=== PATIENT | male | born 1965 | race Caucasian/White ===

== ENCOUNTER 2016-10-08 10:42 | Emergency (ER) | payer OTHER ==
[~2016-10-08] VITALS: Wt 68.0 kg
[~2016-10-08 10:42] MED LIST: ANTIVERT25 MG PO; CELEXA20 MG PO; CLARITIN10 MG PO; DAYPRO600 M1 PO; FLUOXETINE HCL20 MG PO; HYDROCODONE BIT1 T11 PO; KEFLEX500 MG PO; LIPITOR10 MG PO; LIPITOR20 MG PO; LISINOPRIL/HCTZ1 TAB PO; LISINOPRIL10 MG PO; MEDROL DOSEPAK4 MG PO; NAPROXEN500 M1 PO; NEURONTIN300 MG PO; NKHM; PERCOCET 325 MG1 TA2 PO; PRILOSEC20 MG PO; ROBAXIN750 MG PO; VICODIN 500 MG-1 TAB PO
[2016-10-08] MEDS ORDERED: FLUTICASON0.05 MG/AC NAS (10:53)
[2016-10-08] MEDS ORDERED: SYMBICORT1 AE1 INH (10:53)
[2016-10-08] MEDS ORDERED: PROAIR RESPICL90 MCG INH (10:54)
[2016-10-08] MEDS ORDERED: PERCOCET 325 MG1 TA2 PO (13:42)
== END 2016-10-08 13:51 | disposition home or self-care (01) ==
LOC: ED 10:42
DX: S22.41XA Multiple fractures of ribs, right side, initial encounter for closed fracture (principal); I10 Essential (primary) hypertension; M54.6 Pain in thoracic spine; F17.200 Nicotine dependence, unspecified, uncomplicated; Z90.89 Acquired absence of other organs; Z79.899 Other long term (current) drug therapy; Z88.5 Allergy status to narcotic agent; Z88.8 Allergy status to other drugs, medicaments and biological substances; Y04.0XXA Assault by unarmed brawl or fight, initial encounter; Y93.89 Activity, other specified; Y92.89 Other specified places as the place of occurrence of the external cause; Y99.9 Unspecified external cause status

== ENCOUNTER 2016-10-10 16:57 | Emergency (ER) | payer OTHER ==
[~2016-10-10] VITALS: Ht 175.2 cm; Wt 65.3 kg
[~2016-10-10 16:57] MED LIST changes: +FLUTICASON0.05 MG/AC NAS; +PROAIR RESPICL90 MCG INH; +SYMBICORT1 AE1 INH
[2016-10-10 17:32] LABS: BASO # 0.1 10*3/uL (0.0-0.1); BASO % 0.5 % (0.0-1.0); EOS # 0.4 10*3/uL (0.0-0.4); EOS % 2.6 % (1.0-4.0); HEMATOCRIT 44.7 % (42.0-52.0); HEMOGLOBIN 15.7 g/dl (14.0-18.0); IG # 0.1 10*3/uL (0.0-0.1); LYMPH % 26.3 % (27.0-41.0); MEAN CELL VOLUME 96.3 fl (80.0-94.0); MEAN CORPUSCULAR HGB 33.8 pg (27.0-31.0); MEAN CORPUSCULAR HGB CONC 35.1 g/dl (33.0-37.0); MEAN PLATELET VOLUME 8.9 fl (9.6-12.3); MONO # 1.3 10*3/uL (0.1-1.0); MONO % 8.7 % (3.0-9.0); NEUT # 9.4 10*3/uL (2.3-7.9); NEUT % 61.6 % (47.0-73.0); PLATELET COUNT AUTOMATED 262 10*3/uL (130-400); RED BLOOD COUNT 4.64 10*6/uL (4.50-5.90); RED CELL DISTRI WIDTH 13.9 % (0-14.5); WHITE BLOOD COUNT 15.2 10*3/uL (4.8-10.8)
[2016-10-10 17:41] LABS: INTERNATIONAL NORM RATIO 0.9 (2.0-3.5); PROTHROMBIN TIME 9.4 SECONDS (9.0-12.4)
[2016-10-10 17:47] LABS: ALBUMIN 3.9 gm/dl (3.1-4.5); ALKALINE PHOSPHATASE 129 U/L (45-117); BILIRUBIN, TOTAL 0.5 mg/dl (0.2-1.0); BUN 5 mg/dl (7-24); CARBON DIOXIDE 22 mmol/L (21-32); CHLORIDE 101 mmol/L (98-107); CKMB 0.7 ng/ml (0.5-3.6); CPK 157 U/L (39-308); EST GLOM FILT AFRICAN AMERICAN > 60 ml/min; GLUCOSE 97 mg/dL (65-99); MAGNESIUM 1.8 mg/dL (1.5-2.1); SGOT/AST 29 IU/L (3-35); SGPT/ALT 24 U/L (12-78); SODIUM 137 mmol/L (136-145); TOTAL PROTEIN 8.5 gm/dL (6.4-8.2)
[2016-10-10 17:48] LABS: TROPONIN I < 0.015 ng/ml (<0.045)
[2016-10-10] MEDS ORDERED: PERCOCET 325 MG1 TA2 PO (18:54)
[2016-10-10 19:29] LABS: LA>2 REFLEX 2 HR DRAW NOW
== END 2016-10-10 19:10 | disposition home or self-care (01) ==
LOC: ED 16:57
PROVIDERS: Emergency Medicine
DX: S22.41XD Multiple fractures of ribs, right side, subsequent encounter for fracture with routine healing (principal); F17.200 Nicotine dependence, unspecified, uncomplicated; Z88.6 Allergy status to analgesic agent; Z79.899 Other long term (current) drug therapy; Y04.8XXD Assault by other bodily force, subsequent encounter

== ENCOUNTER 2017-09-09 13:55 | Emergency (ER) | payer OTHER ==
[~2017-09-09] VITALS: Ht 175.2 cm; Wt 65.8 kg
[2017-09-09] MEDS ORDERED: NAPROSYN500 MG PO (14:03)
[2017-09-09] MEDS ORDERED: CHLORZOXAZONE500 M2 PO (14:03)
== END 2017-09-09 15:32 | disposition home or self-care (01) ==
LOC: ED 13:55
DX: M54.42 Lumbago with sciatica, left side (principal); F17.200 Nicotine dependence, unspecified, uncomplicated; Z88.6 Allergy status to analgesic agent; Z79.899 Other long term (current) drug therapy

== ENCOUNTER 2017-09-13 13:09 | Emergency (ER) | payer OTHER ==
[~2017-09-13] VITALS: Ht 175.2 cm; Wt 67.1 kg
[~2017-09-13 13:09] MED LIST changes: +CHLORZOXAZONE500 M2 PO; +NAPROSYN500 MG PO
[2017-09-13] MEDS ORDERED: NORCO 10-325 T1 EACH PO (15:36)
[2017-09-13] MEDS ORDERED: MEDROL DOSEPAK4 MG PO (15:36)
== END 2017-09-13 15:42 | disposition home or self-care (01) ==
LOC: ED 13:09
DX: S39.012A Strain of muscle, fascia and tendon of lower back, initial encounter (principal); Z90.89 Acquired absence of other organs; Z79.899 Other long term (current) drug therapy; Z88.5 Allergy status to narcotic agent; Z88.4 Allergy status to anesthetic agent; X50.1XXA Overexertion from prolonged static or awkward postures, initial encounter; Y93.89 Activity, other specified; Y92.89 Other specified places as the place of occurrence of the external cause; Y99.9 Unspecified external cause status

== ENCOUNTER 2017-12-05 15:58 | Inpatient (IN) | payer OTHER ==
[~2017-12-05] VITALS: Ht 175.3 cm; Wt 65.3 kg
[~2017-12-05 15:58] MED LIST changes: +NORCO 10-325 T1 EACH PO
[2017-12-05 15:59] VITALS: BP 137/83
[2017-12-05 16:45] LABS: BASO # 0.1 10*3/uL (0.0-0.1); BASO % 0.7 % (0.0-1.0); EOS # 0.1 10*3/uL (0.0-0.4); EOS % 0.9 % (1.0-4.0); HEMATOCRIT 49.6 % (42.0-52.0); LYMPH # 2.3 10*3/uL (1.3-4.4); MEAN CORPUSCULAR HGB 34.6 pg (27.0-31.0); MEAN CORPUSCULAR HGB CONC 34.3 g/dl (33.0-37.0); MEAN PLATELET VOLUME 9.4 fl (9.6-12.3); MONO # 1.3 10*3/uL (0.1-1.0); MONO % 8.9 % (3.0-9.0); NEUT # 10.4 10*3/uL (2.3-7.9); NEUT % 73.1 % (47.0-73.0); PLATELET COUNT AUTOMATED 250 10*3/uL (130-400); RED BLOOD COUNT 4.91 10*6/uL (4.50-5.90); RED CELL DISTRI WIDTH 14.1 % (0-14.5); WHITE BLOOD COUNT 14.2 10*3/uL (4.8-10.8)
[2017-12-05 17:03] LABS: ALBUMIN 4.5 gm/dl (3.1-4.5); ALKALINE PHOSPHATASE 112 U/L (45-117); BUN 13 mg/dl (7-24); CHLORIDE 105 mmol/L (98-107); CREATININE 0.88 mg/dL (0.70-1.30); LIPASE 90 U/L (73-393); SGOT/AST 53 IU/L (3-35); SGPT/ALT 39 U/L (12-78); SODIUM 141 mmol/L (136-145); TOTAL PROTEIN 8.7 gm/dL (6.4-8.2)
[2017-12-05 18:55] VITALS: BP 131/95
[2017-12-05 20:39] VITALS: BP 118/83
[2017-12-05 20:45] VITALS: BP 140/80
[2017-12-06] VITALS: BP 117/71
[2017-12-06] MEDS ORDERED: BREO ELLIPTA 11 EACH INH (01:16)
[2017-12-06 03:49] LABS: BASO # 0.1 10*3/uL (0.0-0.1); BASO % 0.6 % (0.0-1.0); EOS # 0.2 10*3/uL (0.0-0.4); EOS % 1.9 % (1.0-4.0); HEMATOCRIT 45.7 % (42.0-52.0); HEMOGLOBIN 15.8 g/dl (14.0-18.0); LYMPH # 3.3 10*3/uL (1.3-4.4); LYMPH % 26.9 % (27.0-41.0); MEAN CELL VOLUME 101.6 fl (80.0-94.0); MEAN CORPUSCULAR HGB 35.1 pg (27.0-31.0); MEAN CORPUSCULAR HGB CONC 34.6 g/dl (33.0-37.0); MEAN PLATELET VOLUME 9.8 fl (9.6-12.3); MONO # 1.4 10*3/uL (0.1-1.0); NEUT # 7.3 10*3/uL (2.3-7.9); NEUT % 59.3 % (47.0-73.0); PLATELET COUNT AUTOMATED 214 10*3/uL (130-400); RED CELL DISTRI WIDTH 14.2 % (0-14.5); WHITE BLOOD COUNT 12.3 10*3/uL (4.8-10.8)
[2017-12-06 04:04] LABS: ACT PARTIAL THROMBO TIME 24.1 SECONDS (20.8-31.5); INTERNATIONAL NORM RATIO 0.9 (2.0-3.5)
[2017-12-06 04:05] LABS: ALBUMIN 3.6 gm/dl (3.1-4.5); ALKALINE PHOSPHATASE 94 U/L (45-117); BUN 16 mg/dl (7-24); CHLORIDE 105 mmol/L (98-107); CHOLESTEROL 241 mg/dL (<200); CREATININE 0.91 mg/dL (0.70-1.30); HDL CHOLESTEROL 49 mg/dl (40-60); LDL CHOLESTEROL 154 mg/dL (9-159); PHOSPHOROUS 3.5 mg/dL (2.5-4.9); POTASSIUM 3.7 mmol/L (3.5-5.1); SGOT/AST 49 IU/L (3-35); SGPT/ALT 32 U/L (12-78); SODIUM 140 mmol/L (136-145); TOTAL PROTEIN 7.7 gm/dL (6.4-8.2); TRIGLYCERIDES 190 mg/dl (<150); VLDL CHOLESTEROL 38 mg/dL (6-40)
[2017-12-06 04:06] LABS: FREE T4 0.89 ng/dl (0.76-1.46)
[2017-12-06 07:28] LABS: VITAMIN D, 25-HYDROXY 17.9 ng/mL (30-100)
[2017-12-06 08:00] VITALS: BP 122/76
== END 2017-12-06 10:44 | disposition left against medical advice (07) | DRG 872 ==
LOC: ED 15:58 → EDHOLD 19:50 → 4E 19:50
PROVIDERS: Family Medicine; Physician Assistant
DX: A41.9 Sepsis, unspecified organism (principal); T18.108A Unspecified foreign body in esophagus causing other injury, initial encounter; D72.810 Lymphocytopenia; F17.210 Nicotine dependence, cigarettes, uncomplicated; J32.0 Chronic maxillary sinusitis; R74.0 Nonspecific elevation of levels of transaminase and lactic acid dehydrogenase [LDH]; M54.32 Sciatica, left side; R00.0 Tachycardia, unspecified; Z53.21 Procedure and treatment not carried out due to patient leaving prior to being seen by health care provider; X58.XXXA Exposure to other specified factors, initial encounter; Z71.6 Tobacco abuse counseling; Z88.8 Allergy status to other drugs, medicaments and biological substances; Z87.19 Personal history of other diseases of the digestive system; Z88.5 Allergy status to narcotic agent; Z79.899 Other long term (current) drug therapy; Z98.52 Vasectomy status; Z80.9 Family history of malignant neoplasm, unspecified; Z83.3 Family history of diabetes mellitus; Z83.6 Family history of other diseases of the respiratory system; Y93.89 Activity, other specified; Y92.89 Other specified places as the place of occurrence of the external cause; Y99.8 Other external cause status

== ENCOUNTER → 2020-02-25 | Outpatient (CLI) | payer OTHER ==
[~2020-02-25] MED LIST changes: +BREO ELLIPTA 11 EACH INH
[2020-02-26 07:06] LABS: HEP B CORE AB, IGM Negative (Negative); HEPATITIS B SURFACE AG Negative (Negative); HEPATITIS C VIRUS ANTIBODY <0.1 s/co (0.0-0.9)
== END | disposition home or self-care (01) ==
LOC: LAB 08:26 → US 08:30
PROVIDERS: Internal Medicine
DX: K76.0 Fatty (change of) liver, not elsewhere classified (principal)

== ENCOUNTER 2020-04-01 06:32 | Emergency (ER) | payer OTHER ==
[~2020-04-01] VITALS: Ht 172.7 cm; Wt 68.0 kg
[2020-04-01 07:58] LABS: BASO # 0.1 10*3/uL (0.0-0.1); BASO % 0.9 % (0.0-1.0); EOS # 0.4 10*3/uL (0.0-0.4); EOS % 3.3 % (1.0-4.0); HEMATOCRIT 41.4 % (42.0-52.0); LYMPH # 3.9 10*3/uL (1.3-4.4); LYMPH % 35.4 % (27.0-41.0); MEAN CORPUSCULAR HGB 34.2 pg (27.0-31.0); MEAN CORPUSCULAR HGB CONC 34.5 g/dl (33.0-37.0); MEAN PLATELET VOLUME 9.7 fl (9.6-12.3); MONO # 1.3 10*3/uL (0.1-1.0); MONO % 12.1 % (3.0-9.0); NEUT # 5.3 10*3/uL (2.3-7.9); PLATELET COUNT AUTOMATED 161 10*3/uL (130-400); RED BLOOD COUNT 4.18 10*6/uL (4.50-5.90); RED CELL DISTRI WIDTH 13.2 % (0-14.5); WHITE BLOOD COUNT 11.1 10*3/uL (4.8-10.8)
[2020-04-01 08:16] LABS: ALBUMIN 3.7 gm/dl (3.1-4.5); ALKALINE PHOSPHATASE 169 U/L (45-117); BUN 7 mg/dl (7-24); CHLORIDE 100 mmol/L (98-107); CPK 156 U/L (39-308); CREATININE 0.74 mg/dL (0.70-1.30); POTASSIUM 3.7 mmol/L (3.5-5.1); SGOT/AST 293 IU/L (3-35); SGPT/ALT 190 U/L (12-78); SODIUM 134 mmol/L (136-145); TOTAL PROTEIN 8.2 gm/dL (6.4-8.2)
[2020-04-01] MEDS ORDERED: VOLTAREN100 GM T (09:40)
== END 2020-04-01 10:05 | disposition home or self-care (01) ==
LOC: ED 06:32
PROVIDERS: Emergency Medicine
DX: K70.9 Alcoholic liver disease, unspecified (principal); M79.604 Pain in right leg; M79.605 Pain in left leg; G89.29 Other chronic pain; F10.129 Alcohol abuse with intoxication, unspecified; I10 Essential (primary) hypertension; J44.9 Chronic obstructive pulmonary disease, unspecified; K21.9 Gastro-esophageal reflux disease without esophagitis; E78.00 Pure hypercholesterolemia, unspecified; F17.200 Nicotine dependence, unspecified, uncomplicated; Z88.8 Allergy status to other drugs, medicaments and biological substances; Z79.899 Other long term (current) drug therapy

== ENCOUNTER → 2020-05-03 | Outpatient (CLI) | payer OTHER ==
[~2020-05-03] MED LIST changes: +VOLTAREN100 GM T
== END | disposition home or self-care (01) ==
LOC: US 12:52
PROVIDERS: ATTEND Internal Medicine
DX: M79.604 Pain in right leg (principal); R09.89 Other specified symptoms and signs involving the circulatory and respiratory systems

== ENCOUNTER 2021-01-16 16:58 | Inpatient (IN) | payer OTHER ==
[~2021-01-16] VITALS: Ht 175.3 cm; Wt 69.9 kg
[2021-01-16 17:41] VITALS: BP 164/88
[2021-01-16 18:27] LABS: BASO # 0.1 10*3/uL (0.0-0.1); BASO % 0.5 % (0.0-1.0); EOS # 0.2 10*3/uL (0.0-0.4); EOS % 1.7 % (1.0-4.0); HEMATOCRIT 44.1 % (42.0-52.0); LYMPH # 1.6 10*3/uL (1.3-4.4); LYMPH % 14.6 % (27.0-41.0); MEAN CORPUSCULAR HGB 33.6 pg (27.0-31.0); MEAN CORPUSCULAR HGB CONC 35.4 g/dl (33.0-37.0); MEAN PLATELET VOLUME 10.6 fl (9.6-12.3); MONO # 1.3 10*3/uL (0.1-1.0); MONO % 12.1 % (3.0-9.0); NEUT # 7.8 10*3/uL (2.3-7.9); NEUT % 70.6 % (47.0-73.0); PLATELET COUNT AUTOMATED 186 10*3/uL (130-400); RED BLOOD COUNT 4.64 10*6/uL (4.50-5.90); RED CELL DISTRI WIDTH 14.3 % (0-14.5)
[2021-01-16 18:47] LABS: ALBUMIN 3.5 gm/dl (3.1-4.5); BUN 6 mg/dl (7-24); CHLORIDE 84 mmol/L (98-107); LIPASE 204 U/L (73-393); POTASSIUM 3.9 mmol/L (3.5-5.1); SODIUM 124 mmol/L (136-145)
[2021-01-16 18:50] LABS: ALKALINE PHOSPHATASE 176 U/L (45-117); CREATININE 0.76 mg/dL (0.70-1.30); SGOT/AST 97 IU/L (3-35); SGPT/ALT 57 U/L (12-78); TOTAL PROTEIN 7.9 gm/dL (6.4-8.2)
[2021-01-16] MEDS ORDERED: OMEPRAZOLE40 MG PO (20:43)
[2021-01-16] MEDS ORDERED: VITAMIN D350 MC2 GT (20:44)
[2021-01-16] MEDS ORDERED: DRIZALMA SPRINK20 MG PO (20:46)
[2021-01-16] MEDS ORDERED: LYRICA150 M1 PO (20:46)
[2021-01-16] MEDS ORDERED: NATURE'S BLEND F1 MG PO (20:46)
[2021-01-16 22:45] VITALS: BP 126/74
[2021-01-17 06:14] LABS: BASO # 0.1 10*3/uL (0.0-0.1); BASO % 0.6 % (0.0-1.0); EOS # 0.1 10*3/uL (0.0-0.4); HEMATOCRIT 38.8 % (42.0-52.0); LYMPH # 1.8 10*3/uL (1.3-4.4); LYMPH % 22.2 % (27.0-41.0); MEAN CELL VOLUME 94.6 fl (80.0-94.0); MEAN CORPUSCULAR HGB 33.4 pg (27.0-31.0); MEAN CORPUSCULAR HGB CONC 35.3 g/dl (33.0-37.0); MEAN PLATELET VOLUME 10.6 fl (9.6-12.3); MONO # 1.2 10*3/uL (0.1-1.0); NEUT # 5.1 10*3/uL (2.3-7.9); NEUT % 61.7 % (47.0-73.0); PLATELET COUNT AUTOMATED 180 10*3/uL (130-400); RED CELL DISTRI WIDTH 14.3 % (0-14.5); WHITE BLOOD COUNT 8.2 10*3/uL (4.8-10.8)
[2021-01-17 06:26] LABS: ALBUMIN 3.1 gm/dl (3.1-4.5); ALKALINE PHOSPHATASE 148 U/L (45-117); BUN 7 mg/dl (7-24); CHLORIDE 92 mmol/L (98-107); CHOLESTEROL 194 mg/dL (<200); CREATININE 0.58 mg/dL (0.70-1.30); POTASSIUM 3.7 mmol/L (3.5-5.1); SGOT/AST 71 IU/L (3-35); SGPT/ALT 50 U/L (12-78); SODIUM 126 mmol/L (136-145); TOTAL PROTEIN 7.1 gm/dL (6.4-8.2); TRIGLYCERIDES 130 mg/dl (<150)
[2021-01-17 06:31] LABS: FREE T4 0.98 ng/dl (0.76-1.46); LDL CHOLESTEROL 120 mg/dL (9-159)
[2021-01-17 07:08] LABS: VITAMIN D, 25-HYDROXY 79.4 ng/mL (30-100)
[2021-01-17 08:00] VITALS: BP 125/72
== END 2021-01-17 09:20 | disposition left against medical advice (07) | DRG 426 ==
LOC: ED 16:58 → EDHOLD 21:05 → 4E 21:05
PROVIDERS: Internal Medicine; Physician Assistant; ADMIT Internal Medicine; ATTEND Internal Medicine
DX: E87.1 Hypo-osmolality and hyponatremia (principal); K59.09 Other constipation; E87.2 Acidosis; B37.0 Candidal stomatitis; K70.9 Alcoholic liver disease, unspecified; G62.9 Polyneuropathy, unspecified; D72.829 Elevated white blood cell count, unspecified; E87.8 Other disorders of electrolyte and fluid balance, not elsewhere classified; R73.9 Hyperglycemia, unspecified; F17.210 Nicotine dependence, cigarettes, uncomplicated; F10.10 Alcohol abuse, uncomplicated; I10 Essential (primary) hypertension; J44.9 Chronic obstructive pulmonary disease, unspecified; Z53.29 Procedure and treatment not carried out because of patient's decision for other reasons; K21.9 Gastro-esophageal reflux disease without esophagitis; R74.01 Elevation of levels of liver transaminase levels; R74.8 Abnormal levels of other serum enzymes; Z71.6 Tobacco abuse counseling; Z80.8 Family history of malignant neoplasm of other organs or systems; Z82.5 Family history of asthma and other chronic lower respiratory diseases; Z81.2 Family history of tobacco abuse and dependence; Z88.5 Allergy status to narcotic agent; Z88.8 Allergy status to other drugs, medicaments and biological substances; Z79.899 Other long term (current) drug therapy; Z83.3 Family history of diabetes mellitus

== ENCOUNTER 2021-01-18 17:00 | Inpatient (IN) | payer OTHER ==
[~2021-01-18] VITALS: Ht 175.2 cm; Wt 72.2 kg
[~2021-01-18 17:00] MED LIST changes: +DRIZALMA SPRINK20 MG PO; +LYRICA150 M1 PO; +NATURE'S BLEND F1 MG PO; +OMEPRAZOLE40 MG PO; +VITAMIN D350 MC2 GT
[2021-01-18 17:15] VITALS: BP 123/78
[2021-01-18 18:54] LABS: BASO # 0.1 10*3/uL (0.0-0.1); BASO % 0.6 % (0.0-1.0); EOS # 0.2 10*3/uL (0.0-0.4); EOS % 1.7 % (1.0-4.0); HEMATOCRIT 39.9 % (42.0-52.0); LYMPH # 1.6 10*3/uL (1.3-4.4); LYMPH % 16.9 % (27.0-41.0); MEAN CELL VOLUME 94.8 fl (80.0-94.0); MEAN CORPUSCULAR HGB CONC 35.8 g/dl (33.0-37.0); MEAN PLATELET VOLUME 10.1 fl (9.6-12.3); MONO # 1.1 10*3/uL (0.1-1.0); MONO % 11.2 % (3.0-9.0); NEUT # 6.7 10*3/uL (2.3-7.9); NEUT % 69.2 % (47.0-73.0); PLATELET COUNT AUTOMATED 191 10*3/uL (130-400); RED BLOOD COUNT 4.21 10*6/uL (4.50-5.90); RED CELL DISTRI WIDTH 14.5 % (0-14.5); WHITE BLOOD COUNT 9.7 10*3/uL (4.8-10.8)
[2021-01-18 19:13] LABS: ALBUMIN 3.3 gm/dl (3.1-4.5); ALKALINE PHOSPHATASE 159 U/L (45-117); BUN 6 mg/dl (7-24); CHLORIDE 88 mmol/L (98-107); CREATININE 0.59 mg/dL (0.70-1.30); LIPASE 276 U/L (73-393); POTASSIUM 3.3 mmol/L (3.5-5.1); SGOT/AST 133 IU/L (3-35); SGPT/ALT 68 U/L (12-78); SODIUM 124 mmol/L (136-145); TOTAL PROTEIN 7.5 gm/dL (6.4-8.2)
[2021-01-18 20:24] LABS: BILIRUBIN 1+ (Negative); BLOOD Negative (Negative); CLARITY Clear (Clear); COLOR Dark Yellow (Yellow); GLUCOSE Negative (Negative); KETONE Trace (Negative); LEUKO ESTERASE Negative (Negative); NITRITE Negative (Negative)
[2021-01-18 20:40] LABS: EPITHELIAL CELLS 16-20
[2021-01-19 01:03] VITALS: BP 117/75
[2021-01-19 01:25] VITALS: BP 138/84
[2021-01-19 06:11] LABS: BASO # 0.1 10*3/uL (0.0-0.1); BASO % 0.5 % (0.0-1.0); EOS # 0.1 10*3/uL (0.0-0.4); EOS % 1.2 % (1.0-4.0); LYMPH # 1.8 10*3/uL (1.3-4.4); LYMPH % 17.6 % (27.0-41.0); MEAN CELL VOLUME 97.1 fl (80.0-94.0); MEAN CORPUSCULAR HGB 33.6 pg (27.0-31.0); MEAN CORPUSCULAR HGB CONC 34.6 g/dl (33.0-37.0); MEAN PLATELET VOLUME 10.5 fl (9.6-12.3); MONO # 1.2 10*3/uL (0.1-1.0); MONO % 11.3 % (3.0-9.0); PLATELET COUNT AUTOMATED 182 10*3/uL (130-400); RED BLOOD COUNT 3.81 10*6/uL (4.50-5.90); RED CELL DISTRI WIDTH 14.5 % (0-14.5); WHITE BLOOD COUNT 10.2 10*3/uL (4.8-10.8)
[2021-01-19 06:23] LABS: ALKALINE PHOSPHATASE 144 U/L (45-117); BUN 7 mg/dl (7-24); CHLORIDE 92 mmol/L (98-107); CREATININE 0.56 mg/dL (0.70-1.30); POTASSIUM 3.8 mmol/L (3.5-5.1); SGOT/AST 97 IU/L (3-35); SGPT/ALT 56 U/L (12-78); SODIUM 126 mmol/L (136-145); TOTAL PROTEIN 6.8 gm/dL (6.4-8.2)
[2021-01-19 06:44] LABS: ACT PARTIAL THROMBO TIME 27.7 SECONDS (20.0-32.1)
[2021-01-19 08:00] VITALS: BP 124/74
[2021-01-19 13:58] LABS: BUN 6 mg/dl (7-24); CHLORIDE 95 mmol/L (98-107); CREATININE 0.52 mg/dL (0.70-1.30); POTASSIUM 3.8 mmol/L (3.5-5.1); SODIUM 128 mmol/L (136-145)
[2021-01-19 16:00] VITALS: BP 121/77
[2021-01-19 20:00] VITALS: BP 117/72
[2021-01-20] VITALS (8 sets, daily range): BP systolic 117–142; BP diastolic 66–88
[2021-01-20 09:03] LABS: BASO # 0.1 10*3/uL (0.0-0.1); BASO % 0.6 % (0.0-1.0); EOS # 0.1 10*3/uL (0.0-0.4); EOS % 1.6 % (1.0-4.0); HEMATOCRIT 36.2 % (42.0-52.0); LYMPH # 2.3 10*3/uL (1.3-4.4); LYMPH % 26.4 % (27.0-41.0); MEAN CELL VOLUME 97.6 fl (80.0-94.0); MEAN CORPUSCULAR HGB 33.4 pg (27.0-31.0); MEAN CORPUSCULAR HGB CONC 34.3 g/dl (33.0-37.0); MEAN PLATELET VOLUME 9.7 fl (9.6-12.3); MONO % 12.1 % (3.0-9.0); NEUT % 58.9 % (47.0-73.0); PLATELET COUNT AUTOMATED 179 10*3/uL (130-400); RED BLOOD COUNT 3.71 10*6/uL (4.50-5.90); RED CELL DISTRI WIDTH 14.4 % (0-14.5); WHITE BLOOD COUNT 8.6 10*3/uL (4.8-10.8)
[2021-01-20 09:21] LABS: ALBUMIN 3.1 gm/dl (3.1-4.5); ALKALINE PHOSPHATASE 141 U/L (45-117); BUN 4 mg/dl (7-24); CHLORIDE 96 mmol/L (98-107); CREATININE 0.58 mg/dL (0.70-1.30); POTASSIUM 3.6 mmol/L (3.5-5.1); SGOT/AST 70 IU/L (3-35); SGPT/ALT 49 U/L (12-78); SODIUM 128 mmol/L (136-145); TOTAL PROTEIN 6.9 gm/dL (6.4-8.2)
[2021-01-20 20:21] LABS: BUN 3 mg/dl (7-24); CHLORIDE 98 mmol/L (98-107); CREATININE 0.58 mg/dL (0.70-1.30); SODIUM 130 mmol/L (136-145)
[2021-01-21 06:26] LABS: BASO # 0.1 10*3/uL (0.0-0.1); BASO % 0.7 % (0.0-1.0); EOS # 0.2 10*3/uL (0.0-0.4); EOS % 2.2 % (1.0-4.0); HEMATOCRIT 35.3 % (42.0-52.0); LYMPH # 2.1 10*3/uL (1.3-4.4); LYMPH % 25.7 % (27.0-41.0); MEAN CELL VOLUME 97.2 fl (80.0-94.0); MEAN CORPUSCULAR HGB 33.3 pg (27.0-31.0); MEAN CORPUSCULAR HGB CONC 34.3 g/dl (33.0-37.0); MONO # 0.9 10*3/uL (0.1-1.0); MONO % 11.2 % (3.0-9.0); NEUT # 4.8 10*3/uL (2.3-7.9); NEUT % 59.6 % (47.0-73.0); PLATELET COUNT AUTOMATED 181 10*3/uL (130-400); RED BLOOD COUNT 3.63 10*6/uL (4.50-5.90); RED CELL DISTRI WIDTH 14.3 % (0-14.5); WHITE BLOOD COUNT 8.1 10*3/uL (4.8-10.8)
[2021-01-21 06:28] LABS: BUN 4 mg/dl (7-24); CHLORIDE 100 mmol/L (98-107); CREATININE 0.51 mg/dL (0.70-1.30); POTASSIUM 3.2 mmol/L (3.5-5.1); SODIUM 133 mmol/L (136-145)
[2021-01-21 08:00] VITALS: BP 132/76
== END 2021-01-21 08:45 | disposition home or self-care (01) | DRG 241 ==
LOC: ED 17:00 → 4E 01-19 00:22 → EDHOLD 01-19 00:22 → 4E 01-19 00:37
PROVIDERS: Hospitalist; Internal Medicine Nephrology; Physician Assistant; ADMIT Internal Medicine; ATTEND Internal Medicine
PROC: 0DB78ZX Excision of Stomach, Pylorus, Via Natural or Artificial Opening Endoscopic, Diagnostic (ICD-10-PCS; principal; 2021-01-20)
PROC: 0DJD8ZZ Inspection of Lower Intestinal Tract, Via Natural or Artificial Opening Endoscopic (ICD-10-PCS; 2021-01-20)
DX: K25.9 Gastric ulcer, unspecified as acute or chronic, without hemorrhage or perforation (principal); E87.2 Acidosis; G62.9 Polyneuropathy, unspecified; E87.1 Hypo-osmolality and hyponatremia; K59.09 Other constipation; E87.6 Hypokalemia; R73.9 Hyperglycemia, unspecified; R74.01 Elevation of levels of liver transaminase levels; E80.6 Other disorders of bilirubin metabolism; D75.89 Other specified diseases of blood and blood-forming organs; F17.210 Nicotine dependence, cigarettes, uncomplicated; F10.20 Alcohol dependence, uncomplicated; K57.90 Diverticulosis of intestine, part unspecified, without perforation or abscess without bleeding; K76.0 Fatty (change of) liver, not elsewhere classified; K70.9 Alcoholic liver disease, unspecified; E87.8 Other disorders of electrolyte and fluid balance, not elsewhere classified; K44.9 Diaphragmatic hernia without obstruction or gangrene; I10 Essential (primary) hypertension; K21.9 Gastro-esophageal reflux disease without esophagitis; Z88.5 Allergy status to narcotic agent; Z88.8 Allergy status to other drugs, medicaments and biological substances; Z82.5 Family history of asthma and other chronic lower respiratory diseases; Z81.2 Family history of tobacco abuse and dependence; Z83.3 Family history of diabetes mellitus; Z80.8 Family history of malignant neoplasm of other organs or systems; Z98.52 Vasectomy status; Z79.899 Other long term (current) drug therapy

== ENCOUNTER 2021-02-07 11:20 | Emergency (ER) | payer OTHER ==
[2021-02-07 13:12] LABS: BASO # 0.1 10*3/uL (0.0-0.1); BASO % 0.6 % (0.0-1.0); EOS # 0.2 10*3/uL (0.0-0.4); EOS % 1.8 % (1.0-4.0); HEMATOCRIT 39.7 % (42.0-52.0); LYMPH # 1.7 10*3/uL (1.3-4.4); LYMPH % 17.7 % (27.0-41.0); MEAN CELL VOLUME 100.5 fl (80.0-94.0); MEAN CORPUSCULAR HGB 33.7 pg (27.0-31.0); MEAN CORPUSCULAR HGB CONC 33.5 g/dl (33.0-37.0); MEAN PLATELET VOLUME 9.4 fl (9.6-12.3); MONO # 0.8 10*3/uL (0.1-1.0); MONO % 8.2 % (3.0-9.0); NEUT # 6.7 10*3/uL (2.3-7.9); NEUT % 71.2 % (47.0-73.0); PLATELET COUNT AUTOMATED 254 10*3/uL (130-400); RED BLOOD COUNT 3.95 10*6/uL (4.50-5.90); WHITE BLOOD COUNT 9.4 10*3/uL (4.8-10.8)
[2021-02-07 13:29] LABS: ALBUMIN 3.1 gm/dl (3.1-4.5); ALKALINE PHOSPHATASE 269 U/L (45-117); BUN 7 mg/dl (7-24); CHLORIDE 96 mmol/L (98-107); CREATININE 0.79 mg/dL (0.70-1.30); LIPASE 182 U/L (73-393); POTASSIUM 4.2 mmol/L (3.5-5.1); SGOT/AST 86 IU/L (3-35); SGPT/ALT 47 U/L (12-78); SODIUM 134 mmol/L (136-145); TOTAL PROTEIN 7.5 gm/dL (6.4-8.2)
[2021-02-07 13:55] LABS: BILIRUBIN Negative (Negative); BLOOD Negative (Negative); CLARITY Clear (Clear); COLOR Yellow (Yellow); GLUCOSE Negative (Negative); KETONE Negative (Negative); PH 8.5 (4.5-8.0); SPECIFIC GRAVITY 1.005 (1.001-1.030)
[2021-02-07 13:56] LABS: LEUKO ESTERASE Negative (Negative); NITRITE Negative (Negative)
[2021-02-07 14:06] LABS: EPITHELIAL CELLS 0-2; RBC 0-2 rbc/hpf (0-2); WBC 0-2 wbc/hpf (0-5)
== END 2021-02-07 16:46 | disposition home or self-care (01) ==
LOC: ED 11:20
PROVIDERS: Physician Assistant
DX: R10.11 Right upper quadrant pain (principal); R20.2 Paresthesia of skin; R11.0 Nausea; F17.200 Nicotine dependence, unspecified, uncomplicated; Z88.8 Allergy status to other drugs, medicaments and biological substances; Z88.5 Allergy status to narcotic agent; Z90.89 Acquired absence of other organs; Z79.899 Other long term (current) drug therapy

== ENCOUNTER 2021-04-13 23:37 | Emergency (ER) | payer OTHER ==
[~2021-04-13] VITALS: Wt 70.3 kg
[2021-04-14] LABS: BASO # 0.1 10*3/uL (0.0-0.1); BASO % 0.5 % (0.0-1.0); EOS # 0.3 10*3/uL (0.0-0.4); EOS % 1.9 % (1.0-4.0); HEMATOCRIT 41.9 % (42.0-52.0); LYMPH % 28.3 % (27.0-41.0); MEAN CELL VOLUME 102.9 fl (80.0-94.0); MEAN CORPUSCULAR HGB 34.6 pg (27.0-31.0); MEAN CORPUSCULAR HGB CONC 33.7 g/dl (33.0-37.0); MEAN PLATELET VOLUME 10.5 fl (9.6-12.3); MONO # 1.5 10*3/uL (0.1-1.0); MONO % 10.7 % (3.0-9.0); NEUT # 8.1 10*3/uL (2.3-7.9); NEUT % 58.2 % (47.0-73.0); PLATELET COUNT AUTOMATED 184 10*3/uL (130-400); RED BLOOD COUNT 4.07 10*6/uL (4.50-5.90); RED CELL DISTRI WIDTH 13.3 % (0-14.5)
[2021-04-14 00:21] LABS: ALBUMIN 2.5 gm/dl (3.1-4.5); ALKALINE PHOSPHATASE 228 U/L (45-117); BUN 9 mg/dl (7-24); CHLORIDE 92 mmol/L (98-107); CREATININE 0.64 mg/dL (0.70-1.30); POTASSIUM 3.3 mmol/L (3.5-5.1); SGOT/AST 75 IU/L (3-35); SGPT/ALT 44 U/L (12-78); SODIUM 129 mmol/L (136-145); TOTAL PROTEIN 6.9 gm/dL (6.4-8.2)
[2021-04-14 03:00] LABS: BILIRUBIN Negative (Negative); BLOOD Negative (Negative); CLARITY Clear (Clear); COLOR Yellow (Yellow); GLUCOSE Negative (Negative); KETONE Negative (Negative); LEUKO ESTERASE Negative (Negative); NITRITE Negative (Negative)
[2021-04-14 03:17] LABS: RBC 0-2 rbc/hpf (0-2); WBC 0-2 wbc/hpf (0-5)
== END 2021-04-14 04:34 | disposition home or self-care (01) ==
LOC: ED 23:37
PROVIDERS: Internal Medicine
DX: R56.9 Unspecified convulsions (principal); E88.09 Other disorders of plasma-protein metabolism, not elsewhere classified; E87.8 Other disorders of electrolyte and fluid balance, not elsewhere classified; R79.89 Other specified abnormal findings of blood chemistry; D72.829 Elevated white blood cell count, unspecified; D75.89 Other specified diseases of blood and blood-forming organs; F10.929 Alcohol use, unspecified with intoxication, unspecified; F17.200 Nicotine dependence, unspecified, uncomplicated; Z88.6 Allergy status to analgesic agent; Z79.899 Other long term (current) drug therapy; Y90.9 Presence of alcohol in blood, level not specified

== ENCOUNTER → 2021-05-03 | Outpatient (CLI) | payer OTHER | END | disposition home or self-care (01) | LOC: RAD 16:25 | PROVIDERS: ATTEND Internal Medicine | DX: M17.0 Bilateral primary osteoarthritis of knee (principal); M16.0 Bilateral primary osteoarthritis of hip; M25.752 Osteophyte, left hip; M25.751 Osteophyte, right hip; M25.532 Pain in left wrist ==

== ENCOUNTER 2021-09-08 17:28 | Inpatient (IN) | payer OTHER ==
[~2021-09-08] VITALS: Ht 175.2 cm; Wt 59.0 kg
[~2021-09-08 17:28] MED LIST changes: +XIFAXAN550 MG OGT
[2021-09-08 17:33] VITALS: BP 70/47
[2021-09-08 18:05] LABS: HEMATOCRIT 32.9 % (42.0-52.0); MEAN CELL VOLUME 84.4 fl (80.0-94.0); MEAN CORPUSCULAR HGB 27.9 pg (27.0-31.0); MEAN CORPUSCULAR HGB CONC 33.1 g/dl (33.0-37.0); PLATELET COUNT AUTOMATED 433 10*3/uL (130-400); RED CELL DISTRI WIDTH 15.8 % (0-14.5)
[2021-09-08 18:14] LABS: MANUAL DIFF REFLEX YES
[2021-09-08 18:18] LABS: ACT PARTIAL THROMBO TIME 31.3 SECONDS (20.0-32.1); INTERNATIONAL NORM RATIO 1.5 (2.0-3.5)
[2021-09-08 18:28] LABS: ALKALINE PHOSPHATASE 326 U/L (45-117); BUN 26 mg/dl (7-24); CHLORIDE 93 mmol/L (98-107); CREATININE 1.01 mg/dL (0.70-1.30); POTASSIUM 2.9 mmol/L (3.5-5.1); SGOT/AST 44 IU/L (3-35); SGPT/ALT 25 U/L (12-78); SODIUM 127 mmol/L (136-145); TOTAL PROTEIN 7.2 gm/dL (6.4-8.2)
[2021-09-08 18:29] LABS: ETHYL ALCOHOL < 3.0 mg/dl (<3)
[2021-09-08] MEDS ORDERED: DOCUSATE SOD100 MG PO (18:45)
[2021-09-08] MEDS ORDERED: MELATONIN3 MG PO (18:45)
[2021-09-08 18:46] LABS: PLATELET SUFFICIENCY HIGH (NORMAL); TOTAL CELLS COUNTED 100 #CELLS
[2021-09-08] MEDS ORDERED: FEROSUL325 M1 PO (18:46)
[2021-09-08] MEDS ORDERED: IBU800 M1 PO (18:46)
[2021-09-08 18:47] LABS: BURR CELLS FEW
[2021-09-08] MEDS ORDERED: METHYLPRED-DP4 MG PO (18:47)
[2021-09-08] MEDS ORDERED: METOPROLOL TART50 M1 PO (18:47)
[2021-09-08 18:48] LABS: MICROCYTOSIS SLIGHT
[2021-09-08] MEDS ORDERED: PREGABALIN150 MG PO (18:48)
[2021-09-08] MEDS ORDERED: NATURE'S BLEND100 M2 PO (18:48)
[2021-09-08] MEDS ORDERED: SPIRIVA -- 3018 MCG INH (18:49)
[2021-09-08 19:17] VITALS: BP 93/53
[2021-09-08 21:06] VITALS: BP 91/53
[2021-09-08 22:04] VITALS: BP 87/46
[2021-09-08 22:34] VITALS: BP 99/58
[2021-09-08 23:24] VITALS: BP 100/61
[2021-09-09] VITALS (7 sets, daily range): BP systolic 92–106; BP diastolic 52–67
[2021-09-09 04:53] LABS: ALKALINE PHOSPHATASE 268 U/L (45-117); BUN 21 mg/dl (7-24); CHLORIDE 104 mmol/L (98-107); CREATININE 0.57 mg/dL (0.70-1.30); LIPASE 12 U/L (73-393); POTASSIUM 3.2 mmol/L (3.5-5.1); SGOT/AST 39 IU/L (3-35); SGPT/ALT 24 U/L (12-78); SODIUM 133 mmol/L (136-145); TOTAL PROTEIN 5.8 gm/dL (6.4-8.2)
[2021-09-09 05:34] LABS: BILIRUBIN 1+ (Negative); BLOOD Negative (Negative); CLARITY Clear (Clear); COLOR Dark Yellow (Yellow); GLUCOSE Negative (Negative); KETONE Trace (Negative); LEUKO ESTERASE Trace (Negative); NITRITE Negative (Negative); PH 5.5 (4.5-8.0)
[2021-09-09 05:41] LABS: URINE AMPHETAMINES < 1000 (1000ng/ml); URINE BARBITURATES < 200 (200ng/ml); URINE BENZODIAZEPINES < 200 (200ng/ml); URINE CANNABINOIDS (THC) < 50 (50ng/ml); URINE COCAINE < 300 (300ng/ml); URINE METHADONE < 300 (300ng/ml); URINE OPIATES > 300 (300ng/ml)
[2021-09-09 05:47] LABS: BACTERIA 1+
[2021-09-09 05:54] LABS: URINE PHENCYCLIDINE < 25 (25ng/ml)
[2021-09-09 06:15] LABS: HEMATOCRIT 28.7 % (42.0-52.0); MEAN CORPUSCULAR HGB 28.2 pg (27.0-31.0); MEAN CORPUSCULAR HGB CONC 32.1 g/dl (33.0-37.0); PLATELET COUNT AUTOMATED 371 10*3/uL (130-400); RED BLOOD COUNT 3.26 10*6/uL (4.50-5.90); RED CELL DISTRI WIDTH 15.9 % (0-14.5); WHITE BLOOD COUNT 23.6 10*3/uL (4.8-10.8)
[2021-09-09 06:25] LABS: MANUAL DIFF REFLEX YES
[2021-09-09 07:25] LABS: PLATELET SUFFICIENCY NORMAL (NORMAL); TOTAL CELLS COUNTED 100 #CELLS
[2021-09-10] VITALS: BP 106/62
[2021-09-10 06:22] LABS: BASO # 0.1 10*3/uL (0.0-0.1); BASO % 0.4 % (0.0-1.0); EOS # 0.3 10*3/uL (0.0-0.4); EOS % 2.3 % (1.0-4.0); HEMATOCRIT 25.5 % (42.0-52.0); LYMPH # 2.6 10*3/uL (1.3-4.4); MEAN CELL VOLUME 86.4 fl (80.0-94.0); MEAN CORPUSCULAR HGB 27.8 pg (27.0-31.0); MEAN CORPUSCULAR HGB CONC 32.2 g/dl (33.0-37.0); MEAN PLATELET VOLUME 10.2 fl (9.6-12.3); MONO % 7.6 % (3.0-9.0); NEUT # 9.5 10*3/uL (2.3-7.9); PLATELET COUNT AUTOMATED 391 10*3/uL (130-400); RED BLOOD COUNT 2.95 10*6/uL (4.50-5.90); RED CELL DISTRI WIDTH 15.9 % (0-14.5); WHITE BLOOD COUNT 13.6 10*3/uL (4.8-10.8)
[2021-09-10 06:37] LABS: CHLORIDE 106 mmol/L (98-107); CREATININE 0.43 mg/dL (0.70-1.30); POTASSIUM 2.9 mmol/L (3.5-5.1); SGOT/AST 49 IU/L (3-35); SGPT/ALT 23 U/L (12-78); SODIUM 135 mmol/L (136-145)
[2021-09-10 06:39] LABS: ALKALINE PHOSPHATASE 343 U/L (45-117); TOTAL PROTEIN 5.4 gm/dL (6.4-8.2)
[2021-09-10 06:40] LABS: BUN 8 mg/dl (7-24)
[2021-09-10 08:00] VITALS: BP 103/56
[2021-09-10 12:00] VITALS: BP 105/56; BP 118/79
[2021-09-10] MEDS ORDERED: FIRVANQ25 MG/1 ML PO ×2 (15:18)
[2021-09-10 16:00] VITALS: BP 107/58
[2021-09-10 20:00] VITALS: BP 99/62
[2021-09-11] VITALS: BP 110/69
[2021-09-11 08:00] VITALS: BP 104/68
[2021-09-11] MEDS ORDERED: VANCOCIN HCL P125 MG PO (11:57)
[2021-09-11 12:33] VITALS: BP 118/73
[2021-09-11 13:17] LABS: BASO # 0.1 10*3/uL (0.0-0.1); BASO % 0.7 % (0.0-1.0); EOS # 0.3 10*3/uL (0.0-0.4); EOS % 3.7 % (1.0-4.0); LYMPH # 2.1 10*3/uL (1.3-4.4); LYMPH % 28.5 % (27.0-41.0); MEAN CELL VOLUME 86.8 fl (80.0-94.0); MEAN CORPUSCULAR HGB 27.4 pg (27.0-31.0); MEAN CORPUSCULAR HGB CONC 31.6 g/dl (33.0-37.0); MEAN PLATELET VOLUME 9.9 fl (9.6-12.3); MONO # 0.7 10*3/uL (0.1-1.0); MONO % 9.5 % (3.0-9.0); NEUT # 4.3 10*3/uL (2.3-7.9); NEUT % 57.1 % (47.0-73.0); PLATELET COUNT AUTOMATED 414 10*3/uL (130-400); RED BLOOD COUNT 2.88 10*6/uL (4.50-5.90); RED CELL DISTRI WIDTH 15.9 % (0-14.5); WHITE BLOOD COUNT 7.5 10*3/uL (4.8-10.8)
[2021-09-11 13:38] LABS: CHLORIDE 109 mmol/L (98-107); SODIUM 137 mmol/L (136-145)
[2021-09-11 13:44] LABS: ALKALINE PHOSPHATASE 342 U/L (45-117); BUN 2 mg/dl (7-24); CREATININE 0.53 mg/dL (0.70-1.30); SGOT/AST 35 IU/L (3-35); SGPT/ALT 21 U/L (12-78); TOTAL PROTEIN 5.7 gm/dL (6.4-8.2)
[2021-09-11 16:00] VITALS: BP 124/74
[2021-09-11 20:00] VITALS: BP 128/80
[2021-09-12] VITALS: BP 142/80
[2021-09-12 06:38] LABS: BASO # 0.1 10*3/uL (0.0-0.1); BASO % 0.9 % (0.0-1.0); EOS # 0.3 10*3/uL (0.0-0.4); EOS % 3.8 % (1.0-4.0); HEMATOCRIT 26.6 % (42.0-52.0); LYMPH # 3.3 10*3/uL (1.3-4.4); LYMPH % 40.2 % (27.0-41.0); MEAN CELL VOLUME 86.1 fl (80.0-94.0); MEAN CORPUSCULAR HGB 27.2 pg (27.0-31.0); MEAN CORPUSCULAR HGB CONC 31.6 g/dl (33.0-37.0); MEAN PLATELET VOLUME 9.6 fl (9.6-12.3); MONO # 0.8 10*3/uL (0.1-1.0); MONO % 10.3 % (3.0-9.0); NEUT # 3.6 10*3/uL (2.3-7.9); NEUT % 43.9 % (47.0-73.0); PLATELET COUNT AUTOMATED 423 10*3/uL (130-400); RED BLOOD COUNT 3.09 10*6/uL (4.50-5.90); RED CELL DISTRI WIDTH 16.2 % (0-14.5); WHITE BLOOD COUNT 8.1 10*3/uL (4.8-10.8)
[2021-09-12 06:57] LABS: ALKALINE PHOSPHATASE 331 U/L (45-117); CHLORIDE 111 mmol/L (98-107); CREATININE 0.38 mg/dL (0.70-1.30); POTASSIUM 3.6 mmol/L (3.5-5.1); SGOT/AST 24 IU/L (3-35); SGPT/ALT 19 U/L (12-78); SODIUM 138 mmol/L (136-145); TOTAL PROTEIN 5.6 gm/dL (6.4-8.2)
[2021-09-12 07:04] LABS: BUN 2 mg/dl (7-24)
[2021-09-12 08:00] VITALS: BP 131/75
[2021-09-12 12:00] VITALS: BP 137/86
== END 2021-09-12 17:00 | disposition home health service (06) | DRG 720 ==
LOC: ED 17:28 → 4E 22:43 → 5E 22:43 → EDHOLD 22:43 → 4E 23:22 → ICCU 09-09 01:14 → 5E 09-09 18:10
PROVIDERS: Emergency Medicine; Internal Medicine; ADMIT Internal Medicine; ATTEND Internal Medicine
DX: A40.9 Streptococcal sepsis, unspecified (principal); A04.72 Enterocolitis due to Clostridium difficile, not specified as recurrent; K51.00 Ulcerative (chronic) pancolitis without complications; J69.0 Pneumonitis due to inhalation of food and vomit; E87.1 Hypo-osmolality and hyponatremia; E87.2 Acidosis; E43 Unspecified severe protein-calorie malnutrition; I95.89 Other hypotension; K76.0 Fatty (change of) liver, not elsewhere classified; I50.32 Chronic diastolic (congestive) heart failure; K75.4 Autoimmune hepatitis; R65.21 Severe sepsis with septic shock; K74.60 Unspecified cirrhosis of liver; R73.9 Hyperglycemia, unspecified; G40.909 Epilepsy, unspecified, not intractable, without status epilepticus; D64.9 Anemia, unspecified; K85.90 Acute pancreatitis without necrosis or infection, unspecified; J44.9 Chronic obstructive pulmonary disease, unspecified; F17.210 Nicotine dependence, cigarettes, uncomplicated; I10 Essential (primary) hypertension; G62.9 Polyneuropathy, unspecified; K21.9 Gastro-esophageal reflux disease without esophagitis; Z71.6 Tobacco abuse counseling; Z68.1 Body mass index [BMI] 19.9 or less, adult

== ENCOUNTER → 2021-09-29 | Outpatient (CLI) | payer OTHER ==
[~2021-09-29] MED LIST changes: +DOCUSATE SOD100 MG PO; +FEROSUL325 M1 PO; +FIRVANQ25 MG/1 ML PO; +IBU800 M1 PO; +MELATONIN3 MG PO; +METHYLPRED-DP4 MG PO; +METOPROLOL TART50 M1 PO; +NATURE'S BLEND100 M2 PO; +PREGABALIN150 MG PO; +SPIRIVA -- 3018 MCG INH; +VANCOCIN HCL P125 MG PO
== END | disposition home or self-care (01) ==
LOC: RAD 16:21
PROVIDERS: ATTEND Internal Medicine
DX: J44.1 Chronic obstructive pulmonary disease with (acute) exacerbation (principal); J98.11 Atelectasis

== ENCOUNTER → 2022-07-20 | Outpatient (CLI) | payer OTHER | END | disposition home or self-care (01) | LOC: US 07-11 10:00 | PROVIDERS: ATTEND Internal Medicine | DX: R19.07 Generalized intra-abdominal and pelvic swelling, mass and lump (principal) ==

== ENCOUNTER 2022-12-28 15:51 | Emergency (ER) | payer OTHER ==
[~2022-12-28] VITALS: Ht 170.1 cm; Wt 81.6 kg
[2022-12-28] MEDS ORDERED: KETOROLAC10 MG PO (20:04)
== END 2022-12-28 20:40 | disposition home or self-care (01) ==
LOC: ED 15:51
DX: S16.1XXA Strain of muscle, fascia and tendon at neck level, initial encounter (principal); S39.012A Strain of muscle, fascia and tendon of lower back, initial encounter; M25.562 Pain in left knee; R07.81 Pleurodynia; M25.552 Pain in left hip; F17.200 Nicotine dependence, unspecified, uncomplicated; Z88.8 Allergy status to other drugs, medicaments and biological substances; Z88.5 Allergy status to narcotic agent; Z79.2 Long term (current) use of antibiotics; W50.0XXA Accidental hit or strike by another person, initial encounter; Y93.89 Activity, other specified; Y92.89 Other specified places as the place of occurrence of the external cause; Y99.8 Other external cause status

== ENCOUNTER → 2023-05-13 | Outpatient (CLI) | payer OTHER ==
[~2023-05-13] MED LIST changes: +KETOROLAC10 MG PO
[2023-05-13 16:13] LABS: BASO # 0.1 10*3/uL (0.0-0.1); BASO % 0.7 % (0.0-1.0); EOS # 0.3 10*3/uL (0.0-0.4); EOS % 3.1 % (1.0-4.0); LYMPH # 4.2 10*3/uL (1.3-4.4); MEAN CELL VOLUME 95.9 fl (80.0-94.0); MEAN CORPUSCULAR HGB CONC 34.4 g/dl (33.0-37.0); MEAN PLATELET VOLUME 9.7 fl (9.6-12.3); MONO # 0.8 10*3/uL (0.1-1.0); MONO % 8.6 % (3.0-9.0); NEUT # 4.3 10*3/uL (2.3-7.9); NEUT % 44.3 % (47.0-73.0); PLATELET COUNT AUTOMATED 234 10*3/uL (130-400); WHITE BLOOD COUNT 9.7 10*3/uL (4.8-10.8)
[2023-05-13 16:30] LABS: HEMATOCRIT 60.4 % (42.0-52.0)
[2023-05-13 16:41] LABS: ALKALINE PHOSPHATASE 127 U/L (46-116); BUN 6 mg/dl (9-23); CHLORIDE 94 mmol/L (98-107); FREE T4 1.39 ng/dl (0.89-1.76); POTASSIUM 4.1 mmol/L (3.4-5.1); SGPT/ALT 36 U/L (5-49); TOTAL PROTEIN 8.2 gm/dL (6.0-8.0)
== END | disposition home or self-care (01) ==
LOC: LAB 15:39
PROVIDERS: ATTEND Internal Medicine
DX: I10 Essential (primary) hypertension (principal)

== ENCOUNTER → 2023-05-23 | Outpatient (CLI) | payer OTHER | END | disposition home or self-care (01) | LOC: PHLEB 09:30 | PROVIDERS: ATTEND Internal Medicine | DX: D75.1 Secondary polycythemia (principal) ==

== ENCOUNTER → 2023-07-09 | Outpatient (CLI) | payer OTHER ==
[2023-07-09 14:00] VITALS: BP 178/104
[2023-07-09 14:22] VITALS: BP 137/99
== END | disposition home or self-care (01) ==
LOC: PHLEB 01:16
PROVIDERS: ATTEND Internal Medicine
DX: D45 Polycythemia vera (principal)

== ENCOUNTER → 2023-07-15 | Outpatient (CLI) | payer OTHER ==
[2023-07-15 14:38] LABS: BASO # 0.1 10*3/uL (0.0-0.1); BASO % 0.8 % (0.0-1.0); EOS # 0.2 10*3/uL (0.0-0.4); EOS % 2.1 % (1.0-4.0); HEMATOCRIT 58.1 % (42.0-52.0); LYMPH # 3.1 10*3/uL (1.3-4.4); LYMPH % 31.5 % (27.0-41.0); MEAN CORPUSCULAR HGB 33.7 pg (27.0-31.0); MEAN CORPUSCULAR HGB CONC 32.7 g/dl (33.0-37.0); MONO # 1.2 10*3/uL (0.1-1.0); MONO % 11.8 % (3.0-9.0); NEUT # 5.3 10*3/uL (2.3-7.9); NEUT % 53.5 % (47.0-73.0); PLATELET COUNT AUTOMATED 202 10*3/uL (130-400); RED BLOOD COUNT 5.64 10*6/uL (4.50-5.90); RED CELL DISTRI WIDTH 16.6 % (0-14.5); WHITE BLOOD COUNT 9.9 10*3/uL (4.8-10.8)
== END | disposition home or self-care (01) ==
LOC: LAB 00:35
PROVIDERS: ATTEND Internal Medicine
DX: D75.1 Secondary polycythemia (principal)

== ENCOUNTER → 2023-07-18 | Outpatient (CLI) | payer OTHER ==
[2023-07-18 13:35] VITALS: BP 128/77
[2023-07-18 13:59] VITALS: BP 119/70
== END | disposition home or self-care (01) ==
LOC: PHLEB 01:23
PROVIDERS: ATTEND Internal Medicine
DX: D75.1 Secondary polycythemia (principal)

== ENCOUNTER → 2023-08-26 | Outpatient (CLI) | payer OTHER ==
[2023-08-26 14:34] LABS: BASO # 0.1 10*3/uL (0.0-0.1); BASO % 0.7 % (0.0-1.0); EOS # 0.2 10*3/uL (0.0-0.4); EOS % 2.3 % (1.0-4.0); HEMATOCRIT 57.8 % (42.0-52.0); LYMPH # 2.3 10*3/uL (1.3-4.4); LYMPH % 24.2 % (27.0-41.0); MEAN CELL VOLUME 105.3 fl (80.0-94.0); MEAN CORPUSCULAR HGB CONC 33.2 g/dl (33.0-37.0); MONO % 9.9 % (3.0-9.0); NEUT % 62.6 % (47.0-73.0); PLATELET COUNT AUTOMATED 184 10*3/uL (130-400); RED BLOOD COUNT 5.49 10*6/uL (4.50-5.90); RED CELL DISTRI WIDTH 17.4 % (0-14.5); WHITE BLOOD COUNT 9.7 10*3/uL (4.8-10.8)
[2023-08-26 15:18] LABS: ALKALINE PHOSPHATASE 123 U/L (46-116); BUN 9 mg/dl (9-23); CHLORIDE 101 mmol/L (98-107); POTASSIUM 4.6 mmol/L (3.4-5.1); SGPT/ALT 18 U/L (5-49); T3 UPTAKE 35.8 % (22.4-36.7); THYROXINE (T4) TOTAL 5.2 ug/dl (4.5-10.9); TOTAL PROTEIN 7.9 gm/dL (6.0-8.0)
== END | disposition home or self-care (01) ==
LOC: LAB 12:45 → US 13:00
PROVIDERS: ATTEND Urology
DX: K76.0 Fatty (change of) liver, not elsewhere classified (principal); N43.3 Hydrocele, unspecified; N50.3 Cyst of epididymis; E29.1 Testicular hypofunction; D75.1 Secondary polycythemia; D40.0 Neoplasm of uncertain behavior of prostate

== ENCOUNTER 2024-01-18 13:13 | Emergency (ER) | payer OTHER ==
[~2024-01-18] VITALS: Ht 170.1 cm; Wt 82.1 kg
[2024-01-18 14:27] LABS: MEAN CELL VOLUME 109.5 fl (80.0-94.0); MEAN CORPUSCULAR HGB 37.9 pg (27.0-31.0); MEAN CORPUSCULAR HGB CONC 34.6 g/dl (33.0-37.0); MEAN PLATELET VOLUME 10.6 fl (9.6-12.3); PLATELET COUNT AUTOMATED 157 10*3/uL (130-400); RED BLOOD COUNT 4.75 10*6/uL (4.50-5.90); RED CELL DISTRI WIDTH 17.4 % (0-14.5); WHITE BLOOD COUNT 8.7 10*3/uL (4.8-10.8)
[2024-01-18 14:29] LABS: MANUAL DIFF REFLEX YES
[2024-01-18 14:50] LABS: BASOPHILS 2 % (0-1); TOTAL CELLS COUNTED 100 #CELLS
[2024-01-18 14:51] LABS: PLATELET SUFFICIENCY NORMAL (NORMAL)
[2024-01-18] MEDS ORDERED: PERCOCET 7.5-31 EACH PO (14:52)
[2024-01-18] MEDS ORDERED: ZESTRIL10 MG PO (14:52)
[2024-01-18 14:53] LABS: ALKALINE PHOSPHATASE 193 U/L (46-116); BUN 16 mg/dl (9-23); CHLORIDE 99 mmol/L (98-107); CPK 41 U/L (34-171); ETHYL ALCOHOL 16.2 mg/dl (<3); LIPASE 23 U/L (12-53); POTASSIUM 4.5 mmol/L (3.4-5.1); SGPT/ALT 25 U/L (5-49); TOTAL PROTEIN 7.6 gm/dL (6.0-8.0)
[2024-01-18] MEDS ORDERED: LYRICA200 M1 PO (14:53)
[2024-01-18] MEDS ORDERED: CYMBALTA60 MG PO (14:53)
[2024-01-18] MEDS ORDERED: SODIUM CHLORIDE 0.9% 1,000 ML IV ONE (15:15)
[2024-01-18 15:48] LABS: BILIRUBIN 1+ (Negative); BLOOD Negative (Negative); CLARITY Clear (Clear); COLOR Dark Yellow (Yellow); GLUCOSE Negative (Negative); KETONE Trace (Negative); LEUKO ESTERASE 1+ (Negative); NITRITE Negative (Negative); PH 5.5 (4.5-8.0); SPECIFIC GRAVITY 1.015 (1.001-1.030)
[2024-01-18 15:55] LABS: URINE AMPHETAMINES Negative (1000ng/ml); URINE BARBITURATES Negative (200ng/ml); URINE BENZODIAZEPINES Negative (200ng/ml); URINE CANNABINOIDS (THC) Negative (50ng/ml); URINE COCAINE Negative (300ng/ml); URINE METHADONE Negative (300ng/ml); URINE OPIATES Negative (300ng/ml); URINE PHENCYCLIDINE Negative (25ng/ml)
[2024-01-18 15:58] LABS: BACTERIA TRACE; WBC 0-2 wbc/hpf (0-5)
== END 2024-01-18 17:13 | disposition home or self-care (01) ==
LOC: ED 13:13
PROVIDERS: Internal Medicine
DX: F10.129 Alcohol abuse with intoxication, unspecified (principal); I10 Essential (primary) hypertension; K21.9 Gastro-esophageal reflux disease without esophagitis; E78.00 Pure hypercholesterolemia, unspecified; J44.9 Chronic obstructive pulmonary disease, unspecified; F17.200 Nicotine dependence, unspecified, uncomplicated; F10.10 Alcohol abuse, uncomplicated; Z88.5 Allergy status to narcotic agent; Z88.8 Allergy status to other drugs, medicaments and biological substances; Z98.890 Other specified postprocedural states; Y90.1 Blood alcohol level of 20-39 mg/100 ml

== ENCOUNTER 2024-02-25 15:20 | Inpatient (IN) | payer OTHER ==
[~2024-02-25] VITALS: Ht 175.2 cm; Wt 71.0 kg
[~2024-02-25 15:20] MED LIST changes: +AIRSUPRA 90-810.7 GM INH; +CYMBALTA60 MG PO; +ENULOSE10 GM/151 PO; +LYRICA200 M1 PO; +PERCOCET 7.5-31 EACH PO; +QUETIAPINE FUMA25 MG PO; +VIBRAMYCIN100 MG PO; -VITAMIN D350 MC2 GT; +VITAMIN D350 MC2 PO; +ZESTRIL10 MG PO
[2024-02-25 16:15] VITALS: BP 122/69
[2024-02-25] MEDS ORDERED: ACETAMINOPHEN 325 MG TAB PO PRN (17:20)
[2024-02-25] MEDS ORDERED: MG-AL HYDROXIDE/SIMETICONE 30 ML UDC PO PRN (17:20)
[2024-02-25] MEDS ORDERED: Magnesium Hydroxide 30 ML UDC PO PRN (17:20)
[2024-02-25] MEDS ORDERED: Ziprasidone Mesylate 20 MG VIAL IM PRN (18:00)
[2024-02-25] MEDS ORDERED: LORazepam 2 MG/ML VIAL IM PRN (18:00)
[2024-02-25] MEDS ORDERED: LORazepam 1 MG TAB PO PRN (18:00)
[2024-02-25] MEDS ORDERED: ALBUTEROL INH PRN (18:20)
[2024-02-25] MEDS ORDERED: BUDESONIDE INH PRN (18:20)
[2024-02-25] MEDS ORDERED: Acetaminophen/Oxycodone 5 MG/325 MG TABLET PO PRN (18:25)
[2024-02-25 20:00] VITALS: BP 125/57
[2024-02-25] MEDS ORDERED: Water, Sterile 10 ML VIAL ONE (20:54)
[2024-02-25] MEDS ORDERED: RISPERIDONE 0.5 MG TAB PO SCH (21:00)
[2024-02-25] MEDS ORDERED: Mirtazapine 15 MG TAB PO SCH (21:00)
[2024-02-25] MEDS ORDERED: PREGABALIN 50 MG CAP PO SCH (21:00)
[2024-02-26] MEDS ORDERED: OMEPRAZOLE 20 MG CAP PO SCH (06:00)
[2024-02-26 07:21] LABS: MANUAL DIFF REFLEX YES; MEAN CELL VOLUME 108.3 fl (80.0-94.0); MEAN CORPUSCULAR HGB 36.6 pg (27.0-31.0); MEAN CORPUSCULAR HGB CONC 33.8 g/dl (33.0-37.0); MEAN PLATELET VOLUME 11.3 fl (9.6-12.3); PLATELET COUNT AUTOMATED 117 10*3/uL (130-400); RED BLOOD COUNT 5.08 10*6/uL (4.50-5.90); RED CELL DISTRI WIDTH 15.4 % (0-14.5); WHITE BLOOD COUNT 8.4 10*3/uL (4.8-10.8)
[2024-02-26 07:42] LABS: BASOPHILS 1 % (0-1); PLATELET SUFFICIENCY LOW (NORMAL); POLYCHROMASIA SLIGHT; TOTAL CELLS COUNTED 100 #CELLS
[2024-02-26 07:49] LABS: ALKALINE PHOSPHATASE 150 U/L (46-116); BUN 14 mg/dl (9-23); CHLORIDE 96 mmol/L (98-107); CHOLESTEROL 145 mg/dL (<200); LDL CHOLESTEROL 92 mg/dL (9-159); POTASSIUM 3.5 mmol/L (3.4-5.1); SGPT/ALT 21 U/L (5-49); TOTAL PROTEIN 7.2 gm/dL (6.0-8.0); TRIGLYCERIDES 129 mg/dl (<150)
[2024-02-26 08:08] VITALS: BP 134/65
[2024-02-26] MEDS ORDERED: Cholecalciferol 2,000 UNIT TABLET (50 MCG) PO SCH (09:00)
[2024-02-26] MEDS ORDERED: LISINOPRIL 10 MG TAB PO SCH (10:00)
[2024-02-26] MEDS ORDERED: FOLIC ACID 1 MG TAB PO SCH (10:00)
[2024-02-26] MEDS ORDERED: LACTULOSE 20 GM/30 ML UDC PO SCH (10:00)
[2024-02-26] MEDS ORDERED: Thiamine 100 MG TAB PO SCH (10:00)
[2024-02-26] MEDS ORDERED: BARIUM SULFATE 98% 340 GM BOT PO ONE ×2 (13:55→14:15)
[2024-02-26 20:00] VITALS: BP 129/72
[2024-02-26] MEDS ORDERED: RIFAXIMIN 550 MG TAB PO SCH (22:00)
[2024-02-27 07:38] VITALS: BP 152/81
[2024-02-27 08:04] LABS: BILIRUBIN 2+ (Negative); BLOOD Negative (Negative); CLARITY Clear (Clear); COLOR Orange (Yellow); GLUCOSE Negative (Negative); KETONE Trace (Negative); LEUKO ESTERASE 1+ (Negative); NITRITE Positive (Negative)
[2024-02-27 08:41] LABS: HYALINE CAST 21-30; RBC 0-2 rbc/hpf (0-2)
[2024-02-27] MEDS ORDERED: Ziprasidone Hydrochloride 40 MG CAP PO SCH (17:00)
[2024-02-27 20:00] VITALS: BP 105/82
[2024-02-28 07:53] VITALS: BP 148/78
[2024-02-28] MEDS ORDERED: Ceftriaxone Sodium 1 GM in SYRINGE INFUSION 10 ML IV SCH ×2 (16:40→17:00)
[2024-02-28] MEDS ORDERED: FUROSEMIDE 40 MG TAB PO SCH (16:40)
[2024-02-28 20:00] VITALS: BP 136/71
[2024-02-28 22:00] VITALS: BP 136/71
[2024-02-29 07:24] LABS: HEMATOCRIT 53.2 % (42.0-52.0); MEAN CELL VOLUME 107.5 fl (80.0-94.0); MEAN CORPUSCULAR HGB CONC 33.5 g/dl (33.0-37.0); MEAN PLATELET VOLUME 11.3 fl (9.6-12.3); PLATELET COUNT AUTOMATED 146 10*3/uL (130-400); RED BLOOD COUNT 4.95 10*6/uL (4.50-5.90); RED CELL DISTRI WIDTH 15.1 % (0-14.5); WHITE BLOOD COUNT 10.2 10*3/uL (4.8-10.8)
[2024-02-29 07:25] LABS: MANUAL DIFF REFLEX YES
[2024-02-29 08:00] VITALS: BP 102/62
[2024-02-29 08:00] LABS: ALKALINE PHOSPHATASE 154 U/L (46-116); BUN 19 mg/dl (9-23); CHLORIDE 100 mmol/L (98-107); SGPT/ALT 18 U/L (5-49); TOTAL PROTEIN 7.2 gm/dL (6.0-8.0)
[2024-02-29 08:35] LABS: TOTAL CELLS COUNTED 100 #CELLS
[2024-02-29 08:36] LABS: PLATELET SUFFICIENCY NORMAL (NORMAL); POLYCHROMASIA SLIGHT
[2024-02-29] MEDS ORDERED: POTASSIUM CHLORIDE 20 MEQ TAB PO ONE (10:25)
[2024-02-29 20:00] VITALS: BP 85/57
[2024-02-29] MEDS ORDERED: RAMELTEON 8 MG TAB PO SCH (21:00)
[2024-03-01 08:00] VITALS: BP 100/69
[2024-03-01 19:10] VITALS: BP 110/60
[2024-03-02 08:00] VITALS: BP 121/84
[2024-03-02] MEDS ORDERED: ACAMPROSATE CALCIUM 333 MG PO SCH (10:00)
[2024-03-02] MEDS ORDERED: ACAMPROSATE CA333 M1 PO (10:15)
[2024-03-02] MEDS ORDERED: MIRTAZAPINE15 M2 PO (10:15)
[2024-03-02] MEDS ORDERED: LACTULOSE20 GM/30 M PO (10:15)
[2024-03-02] MEDS ORDERED: ZIPRASIDONE HCL40 MG PO (10:15)
[2024-03-02 13:21] LABS: BUN 19 mg/dl (9-23); CHLORIDE 95 mmol/L (98-107); POTASSIUM 4.2 mmol/L (3.4-5.1)
[2024-03-02 18:54] VITALS: BP 142/87
[2024-03-02] MEDS ORDERED: XIFAXAN550 MG PO (22:03)
[2024-03-03 08:00] VITALS: BP 125/73
[2024-03-03] MEDS ORDERED: AUGMENTIN 500500 M1 PO (12:22)
[2024-03-05] MEDS ORDERED: ZIPRASIDONE HCL60 M1 PO (16:19)
== END 2024-03-03 13:10 | disposition home or self-care (01) | DRG 751 ==
LOC: 3N 15:20 → 4E 16:34 → 3N 17:05
PROVIDERS: Internal Medicine; ADMIT Psychiatry & Neurology Psychiatry; ATTEND Psychiatry & Neurology Psychiatry
PROC: GZHZZZZ Group Psychotherapy (ICD-10-PCS; principal; 2024-02-25)
PROC: GZ51ZZZ Individual Psychotherapy, Behavioral (ICD-10-PCS; 2024-02-25)
PROC: BD1BYZZ Fluoroscopy of Mouth/Oropharynx using Other Contrast (ICD-10-PCS; 2024-02-26)
DX: F33.9 Major depressive disorder, recurrent, unspecified (principal); J69.0 Pneumonitis due to inhalation of food and vomit; K76.82 Hepatic encephalopathy; F10.231 Alcohol dependence with withdrawal delirium; I50.31 Acute diastolic (congestive) heart failure; K70.30 Alcoholic cirrhosis of liver without ascites; K70.10 Alcoholic hepatitis without ascites; F63.81 Intermittent explosive disorder; E11.42 Type 2 diabetes mellitus with diabetic polyneuropathy; K21.9 Gastro-esophageal reflux disease without esophagitis; I11.0 Hypertensive heart disease with heart failure; J44.9 Chronic obstructive pulmonary disease, unspecified; N39.0 Urinary tract infection, site not specified; F41.9 Anxiety disorder, unspecified; Y90.9 Presence of alcohol in blood, level not specified; Z88.5 Allergy status to narcotic agent; Z88.8 Allergy status to other drugs, medicaments and biological substances

== ENCOUNTER → 2024-04-09 | Outpatient (CLI) | payer OTHER ==
[~2024-04-09] MED LIST changes: +ACAMPROSATE CA333 M1 PO; +AMOXICILLIN500 M2 PO; +AUGMENTIN 500500 M1 PO; +LACTULOSE20 GM/30 M PO; +LASIX20 MG PO; +MIRTAZAPINE15 M2 PO; +OXYCODONE-ACET1 EACH PO; +PREDNISONE10 MG PO; +XIFAXAN550 MG PO; +ZIPRASIDONE HCL40 MG PO; +ZIPRASIDONE HCL60 M1 PO
[2024-04-09 13:14] LABS: BASO % 0.2 % (0.0-1.0); EOS # 0.1 10*3/uL (0.0-0.4); EOS % 0.3 % (1.0-4.0); HEMATOCRIT 48.4 % (42.0-52.0); LYMPH # 2.5 10*3/uL (1.3-4.4); LYMPH % 13.1 % (27.0-41.0); MEAN CORPUSCULAR HGB 33.6 pg (27.0-31.0); MEAN CORPUSCULAR HGB CONC 34.3 g/dl (33.0-37.0); MEAN PLATELET VOLUME 9.7 fl (9.6-12.3); MONO # 0.7 10*3/uL (0.1-1.0); MONO % 3.6 % (3.0-9.0); NEUT # 15.9 10*3/uL (2.3-7.9); NEUT % 82.1 % (47.0-73.0); PLATELET COUNT AUTOMATED 268 10*3/uL (130-400); RED BLOOD COUNT 4.94 10*6/uL (4.50-5.90); RED CELL DISTRI WIDTH 14.7 % (0-14.5); WHITE BLOOD COUNT 19.3 10*3/uL (4.8-10.8)
[2024-04-09 13:40] LABS: ALKALINE PHOSPHATASE 143 U/L (46-116); BUN 17 mg/dl (9-23); CHLORIDE 103 mmol/L (98-107); FREE T4 1.45 ng/dl (0.89-1.76); SGPT/ALT 27 U/L (5-49); TOTAL PROTEIN 7.5 gm/dL (6.0-8.0)
== END | disposition home or self-care (01) ==
LOC: LAB 12:55
PROVIDERS: ATTEND Internal Medicine
DX: R53.83 Other fatigue (principal)

== ENCOUNTER 2024-05-13 22:08 | Inpatient (IN) | payer OTHER ==
[~2024-05-13] VITALS: Ht 170 cm; Wt 83.9 kg
[~2024-05-13 22:08] MED LIST changes: +DULOXETINE HCL60 MG PO; +LISINOPRIL20 MG PO
[2024-05-13 22:12] VITALS: BP 152/76
[2024-05-13] MEDS ORDERED: LORazepam 2 MG/ML VIAL IV ONE (22:25)
[2024-05-13 23:00] VITALS: BP 125/49
[2024-05-14] VITALS (60 sets, daily range): BP systolic 65–202; BP diastolic 27–106
[2024-05-14 00:16] LABS: HEMATOCRIT 45.7 % (42.0-52.0); MEAN CELL VOLUME 104.1 fl (80.0-94.0); MEAN CORPUSCULAR HGB 31.9 pg (27.0-31.0); MEAN CORPUSCULAR HGB CONC 30.6 g/dl (33.0-37.0); MEAN PLATELET VOLUME 11.4 fl (9.6-12.3); NUCLEATED RED BLOOD CELL 0.3 10*3/uL (0.0-0.0); NUCLEATED RED BLOOD CELL 1.6 % (0.0-0.0); PLATELET COUNT AUTOMATED 162 10*3/uL (130-400); RED BLOOD COUNT 4.39 10*6/uL (4.50-5.90); RED CELL DISTRI WIDTH 17.5 % (0-14.5); WHITE BLOOD COUNT 21.3 10*3/uL (4.8-10.8)
[2024-05-14 00:17] LABS: MANUAL DIFF REFLEX YES
[2024-05-14 00:45] LABS: PLATELET SUFFICIENCY NORMAL (NORMAL); TOTAL CELLS COUNTED 100 #CELLS
[2024-05-14 00:54] LABS: ABG BASE EXCESS -3.4 mmol/L (-2.0-3.0); ABG O2 SATURATION 94.7 % (94.0-98.0); ARTERIAL BLOOD GAS PH 7.308 (7.350-7.450); ARTERIAL BLOOD GAS PO2 76.1 mmHg (83.0-108.0)
[2024-05-14 01:58] LABS: BUN 52 mg/dl (9-23); CHLORIDE 97 mmol/L (98-107)
[2024-05-14 02:00] LABS: ETHYL ALCOHOL < 3.0 mg/dl (<3); POTASSIUM 7.2 mmol/L (3.4-5.1)
[2024-05-14] MEDS ORDERED: CALCIUM GLUC IN NACL, ISO-OSM 100 ML IV ONE (02:05)
[2024-05-14] MEDS ORDERED: SODIUM CHLORIDE 0.9% 1,000 ML IV ONE ×3 (02:05→08:19)
[2024-05-14] MEDS ORDERED: Albuterol Sulf/Ipratropium 3 ML VIAL NEB ONE (02:05)
[2024-05-14] MEDS ORDERED: DEXTROSE 50% 25 GM/50 ML SYR IV ONE ×2 (02:05→13:50)
[2024-05-14] MEDS ORDERED: BUMETANIDE 1 MG/4 ML VIAL IV ONE (02:05)
[2024-05-14] MEDS ORDERED: INSULIN REGULAR, HUMAN 1 UNIT/0.01 ML IV ONE (02:05)
[2024-05-14] MEDS ORDERED: BISACODYL 5 MG TAB PO PRN (02:50)
[2024-05-14] MEDS ORDERED: BISACODYL 10 MG SUPP R PRN (02:50)
[2024-05-14] MEDS ORDERED: Ondansetron Hydrochloride 4 MG/2 ML VIAL IV PRN (02:50)
[2024-05-14] MEDS ORDERED: Magnesium Hydroxide 30 ML UDC PO PRN (02:50)
[2024-05-14] MEDS ORDERED: DEXMEDETOMIDINE IN 0.9 % NACL 100 ML IV SCH (03:05)
[2024-05-14] MEDS ORDERED: Albuterol Sulfate 2.5 MG/0.5 ML VIAL NEB ONE (03:05)
[2024-05-14] MEDS ORDERED: LORazepam 2 MG/ML VIAL IV ONE (03:10)
[2024-05-14] MEDS ORDERED: hydrOXYzine 50 MG CAP PO PRN (03:10)
[2024-05-14] MEDS ORDERED: Dicyclomine Hydrochloride 20 MG TAB PO PRN (03:10)
[2024-05-14] MEDS ORDERED: METHOCARBAMOL 750 MG TAB PO PRN (03:10)
[2024-05-14] MEDS ORDERED: Water, Sterile 10 ML VIAL IV PRN (03:10)
[2024-05-14] MEDS ORDERED: LORazepam 2 MG/ML VIAL IV PRN (03:10)
[2024-05-14] MEDS ORDERED: MULTIVITAMIN CONCENTRATE (IV) 10 ML,Thiamine 100 MG,FOLIC ACID 1 MG in SODIUM CHLORIDE ... IV ONE (03:10)
[2024-05-14] MEDS ORDERED: SODIUM POLYSTYRENE SULFONATE 15 GM/60 ML BOT R ONE (03:15)
[2024-05-14] MEDS ORDERED: FOLIC ACID 50 MG/10 ML VIAL IV ONE ×2 (03:25→09:04)
[2024-05-14] MEDS ORDERED: Thiamine 200 MG/2 ML VIAL IV ONE ×2 (03:25→09:04)
[2024-05-14] MEDS ORDERED: HEPARIN SODIUM 250 ML IV SCH (04:05)
[2024-05-14] MEDS ORDERED: LACTULOSE 20 GM/30 ML UDC R ONE (04:05)
[2024-05-14] MEDS ORDERED: ASPIRIN, CHEWABLE 81 MG TAB PO ONE (04:20)
[2024-05-14] MEDS ORDERED: Albuterol Sulf/Ipratropium 3 ML VIAL NEB SCH (05:45)
[2024-05-14 06:20] LABS: HEMATOCRIT 43.3 % (42.0-52.0); MEAN CELL VOLUME 105.4 fl (80.0-94.0); MEAN CORPUSCULAR HGB 31.9 pg (27.0-31.0); MEAN CORPUSCULAR HGB CONC 30.3 g/dl (33.0-37.0); MEAN PLATELET VOLUME 11.3 fl (9.6-12.3); NUCLEATED RED BLOOD CELL 0.3 10*3/uL (0.0-0.0); NUCLEATED RED BLOOD CELL 1.6 % (0.0-0.0); PLATELET COUNT AUTOMATED 174 10*3/uL (130-400); RED BLOOD COUNT 4.11 10*6/uL (4.50-5.90); RED CELL DISTRI WIDTH 17.3 % (0-14.5)
[2024-05-14 06:24] LABS: MANUAL DIFF REFLEX YES
[2024-05-14 06:28] LABS: ACT PARTIAL THROMBO TIME 26.7 SECONDS (20.0-32.1)
[2024-05-14 07:05] LABS: PLATELET SUFFICIENCY NORMAL (NORMAL); POLYCHROMASIA SLIGHT; TOTAL CELLS COUNTED 100 #CELLS
[2024-05-14] MEDS ORDERED: NOREPINEPHRINE BITARTRATE/D5W 250 ML IV SCH (07:20)
[2024-05-14] MEDS ORDERED: NOREPINEPHRINE BITARTRATE/D5W 250 ML IV ONE (07:33)
[2024-05-14 07:55] LABS: ALKALINE PHOSPHATASE 232 U/L (46-116); BUN 49 mg/dl (9-23); CHLORIDE 101 mmol/L (98-107); FREE T4 1.06 ng/dl (0.89-1.76); TOTAL PROTEIN 6.4 gm/dL (6.0-8.0)
[2024-05-14] MEDS ORDERED: CEFEPIME HCL IN DEXTROSE 5 % 50 ML IV SCH (08:00)
[2024-05-14] MEDS ORDERED: AZITHROMYCIN 250 ML IV SCH (08:00)
[2024-05-14 08:07] LABS: POTASSIUM 5.3 mmol/L (3.4-5.1); SGPT/ALT > 3300 U/L (5-49)
[2024-05-14 08:45] LABS: BILIRUBIN Negative (Negative); BLOOD Trace-Intact (Negative); CLARITY Cloudy (Clear); COLOR Dark Yellow (Yellow); GLUCOSE Negative (Negative); KETONE Negative (Negative); LEUKO ESTERASE Negative (Negative); NITRITE Negative (Negative); PH 5.5 (4.5-8.0)
[2024-05-14 08:52] LABS: URINE AMPHETAMINES Negative (1000ng/ml); URINE BARBITURATES Negative (200ng/ml); URINE BENZODIAZEPINES Negative (200ng/ml); URINE CANNABINOIDS (THC) Negative (50ng/ml); URINE COCAINE Negative (300ng/ml); URINE METHADONE Negative (300ng/ml); URINE OPIATES Negative (300ng/ml); URINE PHENCYCLIDINE Negative (25ng/ml)
[2024-05-14] MEDS ORDERED: MULTIVITAMIN CONCENTRATE (IV) 10 ML VIAL IV ONE (09:04)
[2024-05-14] MEDS ORDERED: SODIUM CHLORIDE 0.9% 1,000 ML BAG IV ONE ×2 (09:04→10:45)
[2024-05-14 09:19] LABS: BACTERIA TRACE
[2024-05-14] MEDS ORDERED: GUAIFENESIN 600 MG TAB ER PO SCH (10:00)
[2024-05-14] MEDS ORDERED: ATORVASTATIN CALCIUM 40 MG TABLET PO SCH (10:00)
[2024-05-14] MEDS ORDERED: methylPREDNISolone sod succ 40 MG VIAL IV SCH (10:00)
[2024-05-14] MEDS ORDERED: Metoprolol Tartrate 25 MG TAB PO SCH (10:00)
[2024-05-14 10:23] LABS: ABG O2 SATURATION 33.6 % (94.0-98.0)
[2024-05-14 10:24] LABS: ABG BASE EXCESS -7.9 mmol/L (-2.0-3.0); ARTERIAL BLOOD GAS PO2 25.5 mmHg (83.0-108.0)
[2024-05-14 10:25] LABS: ARTERIAL BLOOD GAS PH 7.07 (7.350-7.450)
[2024-05-14] MEDS ORDERED: Vancomycin Hydrochloride 1,000 MG VIAL IV SCH (10:40)
[2024-05-14] MEDS ORDERED: SODIUM BICARBONATE 50 MEQ/50 ML VIAL IV ONE ×3 (10:40→12:10)
[2024-05-14] MEDS ORDERED: VASOPRESSIN 100 ML IV SCH (10:40)
[2024-05-14 10:43] LABS: ABG O2 SATURATION 95.1 % (94.0-98.0)
[2024-05-14 10:46] LABS: ABG BASE EXCESS -9.9 mmol/L (-2.0-3.0); ARTERIAL BLOOD GAS PH 7.211 (7.350-7.450)
[2024-05-14] MEDS ORDERED: VASOPRESSIN 100 ML IV ONE (10:53)
[2024-05-14] MEDS ORDERED: Thiamine 200 MG/2 ML VIAL ONE (10:55)
[2024-05-14] MEDS ORDERED: Piperacillin Sodium/Tazobact 50 ML IV SCH (11:00)
[2024-05-14 11:47] LABS: ARTERIAL BLOOD GAS PO2 89.1 mmHg (83.0-108.0)
[2024-05-14 11:48] LABS: ABG O2 SATURATION 95.5 % (94.0-98.0)
[2024-05-14 11:51] LABS: ABG BASE EXCESS -7.3 mmol/L (-2.0-3.0); ARTERIAL BLOOD GAS PH 7.184 (7.350-7.450)
[2024-05-14] MEDS ORDERED: ROCURONIUM BROMIDE 50 MG/5 ML SYRINGE IV ONE (11:51)
[2024-05-14] MEDS ORDERED: ETOMIDATE 20 MG/10 ML VIAL IV ONE (11:51)
[2024-05-14] MEDS ORDERED: VANCOMYCIN/WATER FOR INJ (PEG) 250 ML IV SCH (12:00)
[2024-05-14 13:26] LABS: POTASSIUM 6.7 mmol/L (3.4-5.1)
[2024-05-14] MEDS ORDERED: INSULIN REGULAR, HUMAN 1 UNIT/0.01 ML SC ONE (13:50)
[2024-05-14] MEDS ORDERED: CALCIUM GLUCONATE 1 GM/10 ML VIAL IV ONE (13:50)
[2024-05-14] MEDS ORDERED: SODIUM POLYSTYRENE SULFONATE 15 GM/60 ML BOT NG ONE (13:50)
[2024-05-14 14:28] LABS: ABG O2 SATURATION 95.8 % (94.0-98.0); ARTERIAL BLOOD GAS PH 7.301 (7.350-7.450); ARTERIAL BLOOD GAS PO2 80.7 mmHg (83.0-108.0)
[2024-05-14 14:29] LABS: ABG BASE EXCESS -4.9 mmol/L (-2.0-3.0)
[2024-05-14] MEDS ORDERED: Midazolam Hydrochloride 5 MG/5 ML VIAL IV PRN (15:30)
[2024-05-14 17:56] LABS: ABG O2 SATURATION 96.6 % (94.0-98.0); ARTERIAL BLOOD GAS PH 7.296 (7.350-7.450); ARTERIAL BLOOD GAS PO2 93.5 mmHg (83.0-108.0)
[2024-05-14 17:57] LABS: ABG BASE EXCESS -4.1 mmol/L (-2.0-3.0)
[2024-05-14 18:49] LABS: POTASSIUM 4.6 mmol/L (3.4-5.1)
[2024-05-14] MEDS ORDERED: SODIUM CHLORIDE 0.9% 1,000 ML IV SCH (20:05)
[2024-05-14] MEDS ORDERED: Chlorhexidine Gluconate 15 ML MOUTHWASH T SCH (22:00)
[2024-05-15] VITALS (61 sets, daily range): BP systolic 89–147; BP diastolic 48–80
[2024-05-15 05:31] LABS: TOTAL PROTEIN 5.4 gm/dL (6.0-8.0)
[2024-05-15 06:11] LABS: BASO # 0.1 10*3/uL (0.0-0.1); BASO % 0.4 % (0.0-1.0); EOS # 0.2 10*3/uL (0.0-0.4); EOS % 1.2 % (1.0-4.0); HEMATOCRIT 40.4 % (42.0-52.0); MEAN CORPUSCULAR HGB 31.5 pg (27.0-31.0); MEAN CORPUSCULAR HGB CONC 31.7 g/dl (33.0-37.0); MEAN PLATELET VOLUME 11.9 fl (9.6-12.3); MONO # 0.8 10*3/uL (0.1-1.0); MONO % 5.7 % (3.0-9.0); NUCLEATED RED BLOOD CELL 0.1 10*3/uL (0.0-0.0); PLATELET COUNT AUTOMATED 164 10*3/uL (130-400); RED BLOOD COUNT 4.06 10*6/uL (4.50-5.90); RED CELL DISTRI WIDTH 18.4 % (0-14.5); WHITE BLOOD COUNT 13.4 10*3/uL (4.8-10.8)
[2024-05-15 06:26] LABS: MEAN CELL VOLUME 99.5 fl (80.0-94.0)
[2024-05-15 08:02] LABS: ABG BASE EXCESS -1.7 mmol/L (-2.0-3.0); ABG O2 SATURATION 98.3 % (94.0-98.0); ARTERIAL BLOOD GAS PH 7.384 (7.350-7.450); ARTERIAL BLOOD GAS PO2 114.1 mmHg (83.0-108.0)
[2024-05-15] MEDS ORDERED: TAZOBACTAM IV SCH (10:00)
[2024-05-15] MEDS ORDERED: SODIUM CHLORIDE 0.9% IV SCH (10:00)
[2024-05-15] MEDS ORDERED: PIPERACILLIN SODIUM IV SCH (10:00)
[2024-05-15] MEDS ORDERED: FOAM BANDAGE HEEL T ONE (20:16)
[2024-05-15] MEDS ORDERED: FOAM BANDAGE 1 EACH BANDAGE T ONE (20:16)
[2024-05-15] MEDS ORDERED: HEEL PROTECTOR DEVICE ONE (20:17)
[2024-05-16] VITALS (10 sets, daily range): BP systolic 92–123; BP diastolic 53–70
[2024-05-16 05:30] LABS: ALKALINE PHOSPHATASE 151 U/L (46-116); CHLORIDE 106 mmol/L (98-107); POTASSIUM 3.7 mmol/L (3.4-5.1); TOTAL PROTEIN 5.1 gm/dL (6.0-8.0)
[2024-05-16 05:39] LABS: BUN 22 mg/dl (9-23); SGPT/ALT 1556 U/L (5-49)
[2024-05-16 06:16] LABS: BASO # 0.1 10*3/uL (0.0-0.1); BASO % 0.6 % (0.0-1.0); EOS # 0.3 10*3/uL (0.0-0.4); EOS % 3.5 % (1.0-4.0); HEMATOCRIT 39.5 % (42.0-52.0); MEAN CELL VOLUME 101.5 fl (80.0-94.0); MEAN CORPUSCULAR HGB 31.6 pg (27.0-31.0); MEAN CORPUSCULAR HGB CONC 31.1 g/dl (33.0-37.0); MEAN PLATELET VOLUME 11.3 fl (9.6-12.3); MONO # 0.6 10*3/uL (0.1-1.0); MONO % 6.8 % (3.0-9.0); NEUT % 70.9 % (47.0-73.0); PLATELET COUNT AUTOMATED 129 10*3/uL (130-400); RED BLOOD COUNT 3.89 10*6/uL (4.50-5.90); RED CELL DISTRI WIDTH 18.6 % (0-14.5); WHITE BLOOD COUNT 8.5 10*3/uL (4.8-10.8)
[2024-05-16 08:30] LABS: ABG BASE EXCESS 1.1 mmol/L (-2.0-3.0); ABG O2 SATURATION 87.1 % (94.0-98.0); ARTERIAL BLOOD GAS PH 7.405 (7.350-7.450)
[2024-05-16 08:34] LABS: ARTERIAL BLOOD GAS PO2 51.9 mmHg (83.0-108.0)
[2024-05-16] MEDS ORDERED: FUROSEMIDE 40 MG/4 ML VIAL IV ONE (13:00)
[2024-05-16] MEDS ORDERED: VANCOMYCIN/WATER FOR INJ (PEG) 350 ML IV SCH (13:00)
[2024-05-16] MEDS ORDERED: PROPOFOL 50 ML IV SCH (13:05)
[2024-05-16] MEDS ORDERED: PROPOFOL 100 ML IV ONE (13:10)
[2024-05-17] VITALS (10 sets, daily range): BP systolic 106–163; BP diastolic 43–82
[2024-05-17 06:19] LABS: BASO # 0.1 10*3/uL (0.0-0.1); BASO % 0.6 % (0.0-1.0); EOS # 0.5 10*3/uL (0.0-0.4); EOS % 5.3 % (1.0-4.0); HEMATOCRIT 38.3 % (42.0-52.0); MEAN CELL VOLUME 99.7 fl (80.0-94.0); MEAN CORPUSCULAR HGB CONC 32.1 g/dl (33.0-37.0); MEAN PLATELET VOLUME 11.6 fl (9.6-12.3); MONO % 11.2 % (3.0-9.0); NEUT # 5.7 10*3/uL (2.3-7.9); NEUT % 66.2 % (47.0-73.0); PLATELET COUNT AUTOMATED 147 10*3/uL (130-400); RED BLOOD COUNT 3.84 10*6/uL (4.50-5.90); RED CELL DISTRI WIDTH 18.6 % (0-14.5); WHITE BLOOD COUNT 8.7 10*3/uL (4.8-10.8)
[2024-05-17 07:03] LABS: BUN 17 mg/dl (9-23); CHLORIDE 105 mmol/L (98-107); POTASSIUM 3.4 mmol/L (3.4-5.1)
[2024-05-17 07:04] LABS: ALKALINE PHOSPHATASE 191 U/L (46-116); TOTAL PROTEIN 5.5 gm/dL (6.0-8.0)
[2024-05-17] MEDS ORDERED: PROPOFOL 100 ML IV SCH (07:15)
[2024-05-17 07:18] LABS: SGPT/ALT 1190 U/L (5-49)
[2024-05-17 08:02] LABS: ABG O2 SATURATION 97.9 % (94.0-98.0); ARTERIAL BLOOD GAS PH 7.474 (7.350-7.450); ARTERIAL BLOOD GAS PO2 105.6 mmHg (83.0-108.0)
[2024-05-17 08:03] LABS: ABG BASE EXCESS 4.1 mmol/L (-2.0-3.0)
[2024-05-17] MEDS ORDERED: FUROSEMIDE 40 MG/4 ML VIAL IV ONE (08:50)
[2024-05-17] MEDS ORDERED: POTASSIUM CHLORIDE 100 ML IV ONE (08:50)
[2024-05-17] MEDS ORDERED: ALBUMIN 25% 100 ML IV ONE (09:00)
[2024-05-17 11:05] LABS: HBsAG SCREEN Negative (Negative); HCV Ab Non Reactive (Non Reactive); HEP B CORE Ab, IgM Negative (Negative)
[2024-05-18] VITALS (9 sets, daily range): BP systolic 107–164; BP diastolic 52–75
[2024-05-18 04:13] LABS: HEMATOCRIT 38.6 % (42.0-52.0); MEAN CORPUSCULAR HGB 31.3 pg (27.0-31.0); MEAN CORPUSCULAR HGB CONC 31.3 g/dl (33.0-37.0); MEAN PLATELET VOLUME 11.1 fl (9.6-12.3); PLATELET COUNT AUTOMATED 136 10*3/uL (130-400); RED BLOOD COUNT 3.86 10*6/uL (4.50-5.90); WHITE BLOOD COUNT 8.8 10*3/uL (4.8-10.8)
[2024-05-18 04:15] LABS: MANUAL DIFF REFLEX YES
[2024-05-18 04:33] LABS: BUN 14 mg/dl (9-23); CHLORIDE 104 mmol/L (98-107); POTASSIUM 3.4 mmol/L (3.4-5.1)
[2024-05-18 04:43] LABS: PLATELET SUFFICIENCY LOW (NORMAL); TOTAL CELLS COUNTED 100 #CELLS
[2024-05-18 08:16] LABS: ABG O2 SATURATION 94.5 % (94.0-98.0); ARTERIAL BLOOD GAS PH 7.455 (7.350-7.450); ARTERIAL BLOOD GAS PO2 72.5 mmHg (83.0-108.0)
[2024-05-18] MEDS ORDERED: DEXMEDETOMIDINE IN 0.9 % NACL 100 ML IV SCH (10:00)
[2024-05-18] MEDS ORDERED: DEXMEDETOMIDINE IN 0.9 % NACL 100 ML IV ONE (10:09)
[2024-05-18 12:02] LABS: ABG O2 SATURATION 94.3 % (94.0-98.0); ARTERIAL BLOOD GAS PH 7.416 (7.350-7.450); ARTERIAL BLOOD GAS PO2 79.4 mmHg (83.0-108.0)
[2024-05-18] MEDS ORDERED: ASPIRIN, CHEWABLE 81 MG TAB OGT SCH (13:10)
[2024-05-18 14:37] LABS: ABG O2 SATURATION 95.3 % (94.0-98.0); ARTERIAL BLOOD GAS PH 7.425 (7.350-7.450); ARTERIAL BLOOD GAS PO2 85.7 mmHg (83.0-108.0)
[2024-05-18 14:38] LABS: ABG BASE EXCESS 3.9 mmol/L (-2.0-3.0)
[2024-05-18] MEDS ORDERED: HEPARIN SODIUM 5,000 UNIT/ML VIAL SC SCH (22:00)
[2024-05-19] VITALS (7 sets, daily range): BP systolic 92–169; BP diastolic 44–101
[2024-05-19 06:55] LABS: BASO % 0.4 % (0.0-1.0); EOS # 0.5 10*3/uL (0.0-0.4); EOS % 4.7 % (1.0-4.0); HEMATOCRIT 42.8 % (42.0-52.0); MEAN CELL VOLUME 101.4 fl (80.0-94.0); MEAN CORPUSCULAR HGB 31.3 pg (27.0-31.0); MEAN CORPUSCULAR HGB CONC 30.8 g/dl (33.0-37.0); MEAN PLATELET VOLUME 11.1 fl (9.6-12.3); MONO # 1.1 10*3/uL (0.1-1.0); MONO % 11.2 % (3.0-9.0); NEUT # 6.6 10*3/uL (2.3-7.9); PLATELET COUNT AUTOMATED 113 10*3/uL (130-400); RED BLOOD COUNT 4.22 10*6/uL (4.50-5.90); RED CELL DISTRI WIDTH 18.8 % (0-14.5); WHITE BLOOD COUNT 9.9 10*3/uL (4.8-10.8)
[2024-05-19 07:23] LABS: BUN 13 mg/dl (9-23); CHLORIDE 104 mmol/L (98-107); POTASSIUM 3.8 mmol/L (3.4-5.1)
[2024-05-19 08:18] LABS: ABG BASE EXCESS 1.7 mmol/L (-2.0-3.0); ABG O2 SATURATION 95.9 % (94.0-98.0); ARTERIAL BLOOD GAS PH 7.381 (7.350-7.450); ARTERIAL BLOOD GAS PO2 88.6 mmHg (83.0-108.0)
[2024-05-19] MEDS ORDERED: SODIUM CHLORIDE 0.9% 1,000 ML IV SCH (12:45)
[2024-05-19] MEDS ORDERED: ACETAMINOPHEN 650 MG SUPP R ONE (15:20)
[2024-05-19] MEDS ORDERED: VANCOMYCIN/WATER FOR INJ (PEG) 300 ML IV SCH (18:00)
[2024-05-19 18:51] LABS: BILIRUBIN Negative (Negative); BLOOD 2+ (Negative); CLARITY Clear (Clear); COLOR Dark Yellow (Yellow); GLUCOSE Negative (Negative); KETONE 2+ (Negative); LEUKO ESTERASE Negative (Negative); NITRITE Negative (Negative); PH 5.5 (4.5-8.0); SPECIFIC GRAVITY >= 1.030 (1.001-1.030)
[2024-05-19 18:57] LABS: RBC 31-40 rbc/hpf (0-2)
[2024-05-19 18:58] LABS: EPITHELIAL CELLS 0-2
[2024-05-20] VITALS (12 sets, daily range): BP systolic 120–155; BP diastolic 45–85
[2024-05-20 05:05] LABS: ALKALINE PHOSPHATASE 168 U/L (46-116); BUN 17 mg/dl (9-23); CHLORIDE 107 mmol/L (98-107); POTASSIUM 3.8 mmol/L (3.4-5.1); SGPT/ALT 414 U/L (5-49); TOTAL PROTEIN 5.8 gm/dL (6.0-8.0)
[2024-05-20 06:12] LABS: HEMATOCRIT 39.4 % (42.0-52.0); MEAN CELL VOLUME 103.1 fl (80.0-94.0); MEAN CORPUSCULAR HGB 31.9 pg (27.0-31.0); MEAN PLATELET VOLUME 11.8 fl (9.6-12.3); PLATELET COUNT AUTOMATED 107 10*3/uL (130-400); RED BLOOD COUNT 3.82 10*6/uL (4.50-5.90); RED CELL DISTRI WIDTH 18.2 % (0-14.5); WHITE BLOOD COUNT 9.9 10*3/uL (4.8-10.8)
[2024-05-20 06:19] LABS: MANUAL DIFF REFLEX YES
[2024-05-20 07:19] LABS: ATYPICAL LYMPHS 1 % (0-0); PLATELET SUFFICIENCY LOW (NORMAL); TOTAL CELLS COUNTED 100 #CELLS
[2024-05-20 08:20] LABS: ABG BASE EXCESS -0.2 mmol/L (-2.0-3.0); ABG O2 SATURATION 95.9 % (94.0-98.0); ARTERIAL BLOOD GAS PH 7.363 (7.350-7.450); ARTERIAL BLOOD GAS PO2 85.5 mmHg (83.0-108.0)
[2024-05-20] MEDS ORDERED: SODIUM CHLORIDE 0.9% 1,000 ML IV SCH (13:00)
[2024-05-20] MEDS ORDERED: hydrOXYzine hydrochloride 50 MG/ML VIAL IM PRN (18:30)
[2024-05-21] VITALS (11 sets, daily range): BP systolic 149–176; BP diastolic 64–87
[2024-05-21 04:25] LABS: HEMATOCRIT 39.2 % (42.0-52.0); MEAN CELL VOLUME 102.6 fl (80.0-94.0); MEAN CORPUSCULAR HGB 31.4 pg (27.0-31.0); MEAN CORPUSCULAR HGB CONC 30.6 g/dl (33.0-37.0); RED BLOOD COUNT 3.82 10*6/uL (4.50-5.90); RED CELL DISTRI WIDTH 17.7 % (0-14.5); WHITE BLOOD COUNT 10.1 10*3/uL (4.8-10.8)
[2024-05-21 04:27] LABS: PLATELET COUNT AUTOMATED 141 10*3/uL (130-400)
[2024-05-21 04:28] LABS: MANUAL DIFF REFLEX YES
[2024-05-21] MEDS ORDERED: LORazepam 2 MG/ML VIAL IV PRN (04:35)
[2024-05-21 04:46] LABS: ALKALINE PHOSPHATASE 142 U/L (46-116); BUN 12 mg/dl (9-23); CHLORIDE 108 mmol/L (98-107); POTASSIUM 3.5 mmol/L (3.4-5.1); SGPT/ALT 298 U/L (5-49); TOTAL PROTEIN 6.1 gm/dL (6.0-8.0)
[2024-05-21 05:00] LABS: ATYPICAL LYMPHS 2 % (0-0); PLATELET SUFFICIENCY LOW (NORMAL); TOTAL CELLS COUNTED 100 #CELLS
[2024-05-21] MEDS ORDERED: SODIUM CHLORIDE 0.9% 1,000 ML IV SCH (15:45)
[2024-05-21] MEDS ORDERED: DEXMEDETOMIDINE HCL 1,000 MCG in SODIUM CHLORIDE 0.9% 240 ML IV SCH (22:45)
[2024-05-22] VITALS (12 sets, daily range): BP systolic 130–169; BP diastolic 64–86
[2024-05-22] MEDS ORDERED: SODIUM CHLORIDE 0.9% 1,000 ML IV SCH (19:30)
[2024-05-23] VITALS (14 sets, daily range): BP systolic 136–172; BP diastolic 66–97
[2024-05-23 05:31] LABS: ALKALINE PHOSPHATASE 161 U/L (46-116); BUN 8 mg/dl (9-23); CHLORIDE 106 mmol/L (98-107); POTASSIUM 3.6 mmol/L (3.4-5.1); SGPT/ALT 171 U/L (5-49); TOTAL PROTEIN 6.3 gm/dL (6.0-8.0)
[2024-05-23 06:05] LABS: HEMATOCRIT 38.1 % (42.0-52.0); MEAN CELL VOLUME 102.7 fl (80.0-94.0); MEAN CORPUSCULAR HGB 31.3 pg (27.0-31.0); MEAN CORPUSCULAR HGB CONC 30.4 g/dl (33.0-37.0); MEAN PLATELET VOLUME 10.8 fl (9.6-12.3); PLATELET COUNT AUTOMATED 215 10*3/uL (130-400); RED BLOOD COUNT 3.71 10*6/uL (4.50-5.90); RED CELL DISTRI WIDTH 17.2 % (0-14.5); WHITE BLOOD COUNT 9.4 10*3/uL (4.8-10.8)
[2024-05-23 06:14] LABS: MANUAL DIFF REFLEX YES
[2024-05-23 09:13] LABS: ATYPICAL LYMPHS 1 % (0-0); PLATELET SUFFICIENCY NORMAL (NORMAL); POLYCHROMASIA SLIGHT; TOTAL CELLS COUNTED 100 #CELLS
[2024-05-23] MEDS ORDERED: Water, Sterile 10 ML VIAL ONE (11:55)
[2024-05-23] MEDS ORDERED: FUROSEMIDE 40 MG/4 ML VIAL IV ONE (13:40)
[2024-05-23] MEDS ORDERED: MAGNESIUM SULFATE 50 ML IV ONE (15:55)
[2024-05-23] MEDS ORDERED: PIPERACILLIN SODIUM IV SCH (16:00)
[2024-05-23] MEDS ORDERED: TAZOBACTAM IV SCH (16:00)
[2024-05-23] MEDS ORDERED: SODIUM CHLORIDE 0.9% IV SCH (16:00)
[2024-05-24] VITALS (12 sets, daily range): BP systolic 104–164; BP diastolic 42–93
[2024-05-24] MEDS ORDERED: GUAIFENESIN 10 ML UDC PO SCH
[2024-05-24] MEDS ORDERED: Water, Sterile 10 ML VIAL IV SCH (00:25)
[2024-05-24] MEDS ORDERED: Water, Sterile 10 ML VIAL ONE (00:37)
[2024-05-24 06:10] LABS: ALKALINE PHOSPHATASE 175 U/L (46-116); BUN 5 mg/dl (9-23); CHLORIDE 101 mmol/L (98-107); POTASSIUM 3.7 mmol/L (3.4-5.1); SGPT/ALT 147 U/L (5-49); TOTAL PROTEIN 6.8 gm/dL (6.0-8.0)
[2024-05-24 06:25] LABS: HEMATOCRIT 39.3 % (42.0-52.0); MEAN CORPUSCULAR HGB 30.9 pg (27.0-31.0); MEAN PLATELET VOLUME 10.6 fl (9.6-12.3); PLATELET COUNT AUTOMATED 254 10*3/uL (130-400); RED BLOOD COUNT 3.95 10*6/uL (4.50-5.90); RED CELL DISTRI WIDTH 16.8 % (0-14.5); WHITE BLOOD COUNT 10.3 10*3/uL (4.8-10.8)
[2024-05-24 07:09] LABS: MEAN CELL VOLUME 99.5 fl (80.0-94.0)
[2024-05-24 07:10] LABS: MANUAL DIFF REFLEX YES
[2024-05-24 07:30] LABS: ATYPICAL LYMPHS 1 % (0-0); BASOPHILS 2 % (0-1); TOTAL CELLS COUNTED 100 #CELLS
[2024-05-24 07:31] LABS: PLATELET SUFFICIENCY NORMAL (NORMAL)
[2024-05-24] MEDS ORDERED: FUROSEMIDE 40 MG/4 ML VIAL IV SCH ×2 (10:00)
[2024-05-24] MEDS ORDERED: Ziprasidone Hydrochloride 20 MG CAP PO SCH (17:00)
[2024-05-25] VITALS (13 sets, daily range): BP systolic 116–156; BP diastolic 58–87
[2024-05-25 04:23] LABS: BASO # 0.1 10*3/uL (0.0-0.1); BASO % 1.3 % (0.0-1.0); EOS # 0.7 10*3/uL (0.0-0.4); EOS % 6.7 % (1.0-4.0); HEMATOCRIT 38.2 % (42.0-52.0); MEAN CELL VOLUME 97.2 fl (80.0-94.0); MEAN CORPUSCULAR HGB 31.6 pg (27.0-31.0); MEAN CORPUSCULAR HGB CONC 32.5 g/dl (33.0-37.0); MEAN PLATELET VOLUME 10.1 fl (9.6-12.3); MONO # 1.4 10*3/uL (0.1-1.0); MONO % 13.7 % (3.0-9.0); NEUT # 5.7 10*3/uL (2.3-7.9); NEUT % 56.6 % (47.0-73.0); PLATELET COUNT AUTOMATED 233 10*3/uL (130-400); RED BLOOD COUNT 3.93 10*6/uL (4.50-5.90); WHITE BLOOD COUNT 10.1 10*3/uL (4.8-10.8)
[2024-05-25 04:48] LABS: BUN 7 mg/dl (9-23); CHLORIDE 93 mmol/L (98-107)
[2024-05-25 04:51] LABS: POTASSIUM 2.6 mmol/L (3.4-5.1)
[2024-05-25] MEDS ORDERED: MAGNESIUM SULFATE 50 ML IV ONE (05:20)
[2024-05-25] MEDS ORDERED: POTASSIUM CHLORIDE IN WATER 100 ML IV ONE (05:41)
[2024-05-25] MEDS ORDERED: POTASSIUM CHLORIDE IN WATER 100 ML IV SCH (06:00)
[2024-05-26] VITALS (15 sets, daily range): BP systolic 93–1527; BP diastolic 55–87
[2024-05-26 07:54] LABS: BASO # 0.1 10*3/uL (0.0-0.1); BASO % 1.4 % (0.0-1.0); EOS # 0.8 10*3/uL (0.0-0.4); EOS % 7.5 % (1.0-4.0); HEMATOCRIT 40.6 % (42.0-52.0); MEAN CELL VOLUME 97.4 fl (80.0-94.0); MEAN CORPUSCULAR HGB 30.7 pg (27.0-31.0); MEAN CORPUSCULAR HGB CONC 31.5 g/dl (33.0-37.0); MEAN PLATELET VOLUME 9.8 fl (9.6-12.3); MONO # 1.4 10*3/uL (0.1-1.0); MONO % 13.7 % (3.0-9.0); NEUT # 5.4 10*3/uL (2.3-7.9); PLATELET COUNT AUTOMATED 282 10*3/uL (130-400); RED BLOOD COUNT 4.17 10*6/uL (4.50-5.90); RED CELL DISTRI WIDTH 16.4 % (0-14.5); WHITE BLOOD COUNT 10.3 10*3/uL (4.8-10.8)
[2024-05-26] MEDS ORDERED: FOAM BANDAGE HEEL T ONE (08:02)
[2024-05-26] MEDS ORDERED: FOAM BANDAGE 1 EACH BANDAGE T ONE (08:02)
[2024-05-26 08:25] LABS: BUN 7 mg/dl (9-23); CHLORIDE 91 mmol/L (98-107)
[2024-05-26 08:28] LABS: POTASSIUM 2.4 mmol/L (3.4-5.1)
[2024-05-26] MEDS ORDERED: POTASSIUM CHLORIDE IN WATER 100 ML IV SCH (10:00)
[2024-05-26] MEDS ORDERED: POTASSIUM CHLORIDE 20 MEQ TAB NG ONE (14:50)
[2024-05-27] VITALS (13 sets, daily range): BP systolic 90–136; BP diastolic 48–76
[2024-05-27 05:20] LABS: ALKALINE PHOSPHATASE 146 U/L (46-116); BUN 9 mg/dl (9-23); CHLORIDE 91 mmol/L (98-107); POTASSIUM 2.7 mmol/L (3.4-5.1); SGPT/ALT 67 U/L (5-49); TOTAL PROTEIN 7.8 gm/dL (6.0-8.0)
[2024-05-27 06:21] LABS: BASO # 0.3 10*3/uL (0.0-0.1); BASO % 2.2 % (0.0-1.0); EOS # 0.7 10*3/uL (0.0-0.4); EOS % 6.7 % (1.0-4.0); HEMATOCRIT 41.7 % (42.0-52.0); MEAN CELL VOLUME 96.3 fl (80.0-94.0); MEAN CORPUSCULAR HGB 30.9 pg (27.0-31.0); MEAN CORPUSCULAR HGB CONC 32.1 g/dl (33.0-37.0); MEAN PLATELET VOLUME 10.7 fl (9.6-12.3); MONO # 1.5 10*3/uL (0.1-1.0); MONO % 13.5 % (3.0-9.0); NEUT # 6.7 10*3/uL (2.3-7.9); NEUT % 59.8 % (47.0-73.0); PLATELET COUNT AUTOMATED 320 10*3/uL (130-400); RED BLOOD COUNT 4.33 10*6/uL (4.50-5.90); RED CELL DISTRI WIDTH 16.4 % (0-14.5); WHITE BLOOD COUNT 11.1 10*3/uL (4.8-10.8)
[2024-05-27] MEDS ORDERED: POTASSIUM CHLORIDE 100 ML IV SCH (08:00)
[2024-05-27] MEDS ORDERED: POTASSIUM CHLORIDE 20 MEQ TAB NG ONE (09:55)
[2024-05-27] MEDS ORDERED: LORazepam 1 MG TAB NG SCH (12:00)
[2024-05-27 13:28] LABS: POTASSIUM 3.8 mmol/L (3.4-5.1)
[2024-05-27] MEDS ORDERED: ACETAMINOPHEN 325 MG TAB PO PRN (15:30)
[2024-05-27] MEDS ORDERED: ACETAMINOPHEN 650 MG SUPP R PRN (15:30)
[2024-05-27] MEDS ORDERED: Ziprasidone Hydrochloride 20 MG CAP PO SCH (17:00)
[2024-05-28] VITALS (9 sets, daily range): BP systolic 95–123; BP diastolic 55–80
[2024-05-28 08:54] LABS: HEMATOCRIT 41.6 % (42.0-52.0); MEAN CELL VOLUME 98.1 fl (80.0-94.0); MEAN CORPUSCULAR HGB 30.7 pg (27.0-31.0); MEAN CORPUSCULAR HGB CONC 31.3 g/dl (33.0-37.0); MEAN PLATELET VOLUME 10.4 fl (9.6-12.3); PLATELET COUNT AUTOMATED 327 10*3/uL (130-400); RED BLOOD COUNT 4.24 10*6/uL (4.50-5.90); RED CELL DISTRI WIDTH 16.4 % (0-14.5)
[2024-05-28 08:59] LABS: MANUAL DIFF REFLEX YES
[2024-05-28 09:07] LABS: BUN 13 mg/dl (9-23); CHLORIDE 94 mmol/L (98-107)
[2024-05-28 09:12] LABS: ATYPICAL LYMPHS 1 % (0-0); BASOPHILS 4 % (0-1); OVALOCYTES FEW; PLATELET SUFFICIENCY NORMAL (NORMAL); POLYCHROMASIA SLIGHT; STOMATOCYTE FEW; TOTAL CELLS COUNTED 100 #CELLS
[2024-05-28] MEDS ORDERED: POTASSIUM CHLORIDE 20 MEQ TAB NG SCH (10:00)
[2024-05-28] MEDS ORDERED: DEXMEDETOMIDINE IN 0.9 % NACL 100 ML IV SCH (11:00)
[2024-05-28] MEDS ORDERED: Ziprasidone Hydrochloride 40 MG CAP PO SCH (17:00)
[2024-05-29] VITALS: BP 167/82
[2024-05-29] MEDS ORDERED: CALCIUM (TUMS) 500MG PO PRN (01:00)
[2024-05-29 05:49] LABS: ALKALINE PHOSPHATASE 184 U/L (46-116); BUN 19 mg/dl (9-23); CHLORIDE 95 mmol/L (98-107); POTASSIUM 3.4 mmol/L (3.4-5.1); SGPT/ALT 49 U/L (5-49)
[2024-05-29 06:24] LABS: MEAN CELL VOLUME 96.9 fl (80.0-94.0); MEAN CORPUSCULAR HGB 30.6 pg (27.0-31.0); MEAN CORPUSCULAR HGB CONC 31.6 g/dl (33.0-37.0); MEAN PLATELET VOLUME 10.5 fl (9.6-12.3); PLATELET COUNT AUTOMATED 396 10*3/uL (130-400); RED BLOOD COUNT 4.54 10*6/uL (4.50-5.90); RED CELL DISTRI WIDTH 16.4 % (0-14.5); WHITE BLOOD COUNT 20.9 10*3/uL (4.8-10.8)
[2024-05-29 06:27] LABS: MANUAL DIFF REFLEX YES
[2024-05-29 07:47] LABS: BASOPHILS 3 % (0-1); PLATELET SUFFICIENCY NORMAL (NORMAL); TOTAL CELLS COUNTED 100 #CELLS
[2024-05-29 08:00] VITALS: BP 146/92
[2024-05-29] MEDS ORDERED: FUROSEMIDE 40 MG/4 ML VIAL IV SCH (10:00)
[2024-05-29 12:00] VITALS: BP 148/77; BP 158/90
[2024-05-29 16:00] VITALS: BP 148/77
[2024-05-29 20:00] VITALS: BP 133/72
[2024-05-30] VITALS: BP 142/63
[2024-05-30 04:00] VITALS: BP 145/55
[2024-05-30 08:00] VITALS: BP 156/56
[2024-05-30] MEDS ORDERED: FUROSEMIDE 40 MG TAB PO SCH (10:00)
[2024-05-30 12:00] VITALS: BP 127/72
[2024-05-30 16:00] VITALS: BP 137/68
[2024-05-30 19:55] VITALS: BP 147/77
[2024-05-31] VITALS: BP 153/80
[2024-05-31 03:54] VITALS: BP 151/75
[2024-05-31 05:14] LABS: ALKALINE PHOSPHATASE 137 U/L (46-116); BUN 19 mg/dl (9-23); CHLORIDE 100 mmol/L (98-107); POTASSIUM 3.2 mmol/L (3.4-5.1); SGPT/ALT 27 U/L (5-49); TOTAL PROTEIN 8.5 gm/dL (6.0-8.0)
[2024-05-31 06:06] LABS: HEMATOCRIT 39.4 % (42.0-52.0); MEAN CELL VOLUME 96.3 fl (80.0-94.0); MEAN CORPUSCULAR HGB 30.3 pg (27.0-31.0); MEAN CORPUSCULAR HGB CONC 31.5 g/dl (33.0-37.0); MEAN PLATELET VOLUME 10.3 fl (9.6-12.3); PLATELET COUNT AUTOMATED 408 10*3/uL (130-400); RED BLOOD COUNT 4.09 10*6/uL (4.50-5.90); RED CELL DISTRI WIDTH 16.2 % (0-14.5); WHITE BLOOD COUNT 18.7 10*3/uL (4.8-10.8)
[2024-05-31 06:21] LABS: MANUAL DIFF REFLEX YES
[2024-05-31 07:22] LABS: BASOPHILS 2 % (0-1); PLATELET SUFFICIENCY HIGH (NORMAL); TOTAL CELLS COUNTED 100 #CELLS
[2024-05-31 07:23] LABS: STOMATOCYTE FEW
[2024-05-31 08:00] VITALS: BP 161/89
[2024-05-31 12:00] VITALS: BP 126/68
[2024-05-31 16:00] VITALS: BP 136/81
[2024-05-31] MEDS ORDERED: VANCOMYCIN/WATER FOR INJ (PEG) 250 ML IV SCH (16:00)
[2024-05-31 20:00] VITALS: BP 132/65
[2024-06-01] VITALS: BP 143/74
[2024-06-01 06:46] LABS: ALKALINE PHOSPHATASE 127 U/L (46-116); BUN 13 mg/dl (9-23); CHLORIDE 98 mmol/L (98-107); POTASSIUM 3.6 mmol/L (3.4-5.1); SGPT/ALT 23 U/L (5-49); TOTAL PROTEIN 8.7 gm/dL (6.0-8.0)
[2024-06-01 06:50] LABS: HEMATOCRIT 39.3 % (42.0-52.0); MEAN CELL VOLUME 95.4 fl (80.0-94.0); MEAN CORPUSCULAR HGB 30.3 pg (27.0-31.0); MEAN CORPUSCULAR HGB CONC 31.8 g/dl (33.0-37.0); MEAN PLATELET VOLUME 10.2 fl (9.6-12.3); PLATELET COUNT AUTOMATED 446 10*3/uL (130-400); RED BLOOD COUNT 4.12 10*6/uL (4.50-5.90); WHITE BLOOD COUNT 18.5 10*3/uL (4.8-10.8)
[2024-06-01 06:54] LABS: MANUAL DIFF REFLEX YES
[2024-06-01 07:49] LABS: ATYPICAL LYMPHS 6 % (0-0); BASOPHILS 2 % (0-1); PLATELET SUFFICIENCY HIGH (NORMAL); POLYCHROMASIA SLIGHT; STOMATOCYTE FEW; TOTAL CELLS COUNTED 100 #CELLS
[2024-06-01 07:50] LABS: OVALOCYTES FEW; ROULEAUX SLIGHT
[2024-06-01 08:00] VITALS: BP 132/73
[2024-06-01 12:00] VITALS: BP 116/65
[2024-06-01] MEDS ORDERED: LORazepam 2 MG/ML VIAL IV ONE (15:35)
[2024-06-01] MEDS ORDERED: LORazepam 2 MG/ML VIAL ONE (15:56)
[2024-06-01 16:00] VITALS: BP 150/80
[2024-06-01 19:36] VITALS: BP 125/66
[2024-06-02 01:00] VITALS: BP 124/76
[2024-06-02] MEDS ORDERED: SODIUM CHLORIDE 0.9% 500 ML IV ONE (05:25)
[2024-06-02 08:00] VITALS: BP 116/72
[2024-06-02 12:00] VITALS: BP 129/72
[2024-06-02] MEDS ORDERED: SENOKOT-S TABL1 EACH PO (12:59)
[2024-06-02] MEDS ORDERED: ATARAX,VISTARIL50 MG PO (12:59)
[2024-06-02] MEDS ORDERED: FUROSEMIDE40 MG PO (12:59)
[2024-06-02] MEDS ORDERED: CALCIUM CARBON200 MG PO (12:59)
[2024-06-02] MEDS ORDERED: LOPRESSOR25 MG PO (12:59)
== END 2024-06-02 16:26 | DRG 720 ==
LOC: ED 22:08 → EDHOLD 05-14 02:40 → ICCU 05-14 02:40 → EDHOLD 05-14 03:00 → ICCU 05-14 06:30
PROVIDERS: Internal Medicine; Internal Medicine Critical Care Medicine; Internal Medicine Infectious Disease; Internal Medicine Nephrology; Student in an Organized Health Care Education/Training Program; ADMIT Internal Medicine; ATTEND Internal Medicine
PROC: 0BH17EZ Insertion of Endotracheal Airway into Trachea, Via Natural or Artificial Opening (ICD-10-PCS; principal; 2024-05-14)
PROC: 5A1955Z Respiratory Ventilation, Greater than 96 Consecutive Hours (ICD-10-PCS; 2024-05-14)
PROC: 5A09357 Assistance with Respiratory Ventilation, Less than 24 Consecutive Hours, Continuous Positive Airway Pressure (ICD-10-PCS; 2024-05-18)
PROC: 5A09357 Assistance with Respiratory Ventilation, Less than 24 Consecutive Hours, Continuous Positive Airway Pressure (ICD-10-PCS; 2024-05-19)
PROC: 5A09357 Assistance with Respiratory Ventilation, Less than 24 Consecutive Hours, Continuous Positive Airway Pressure (ICD-10-PCS; 2024-05-20)
PROC: 5A09357 Assistance with Respiratory Ventilation, Less than 24 Consecutive Hours, Continuous Positive Airway Pressure (ICD-10-PCS; 2024-05-21)
PROC: 5A09357 Assistance with Respiratory Ventilation, Less than 24 Consecutive Hours, Continuous Positive Airway Pressure (ICD-10-PCS; 2024-05-22)
PROC: 5A09357 Assistance with Respiratory Ventilation, Less than 24 Consecutive Hours, Continuous Positive Airway Pressure (ICD-10-PCS; 2024-05-23)
PROC: 5A09357 Assistance with Respiratory Ventilation, Less than 24 Consecutive Hours, Continuous Positive Airway Pressure (ICD-10-PCS; 2024-05-24)
PROC: 5A09357 Assistance with Respiratory Ventilation, Less than 24 Consecutive Hours, Continuous Positive Airway Pressure (ICD-10-PCS; 2024-05-25)
PROC: 5A09357 Assistance with Respiratory Ventilation, Less than 24 Consecutive Hours, Continuous Positive Airway Pressure (ICD-10-PCS; 2024-05-26)
PROC: 5A09357 Assistance with Respiratory Ventilation, Less than 24 Consecutive Hours, Continuous Positive Airway Pressure (ICD-10-PCS; 2024-05-27)
PROC: 5A09357 Assistance with Respiratory Ventilation, Less than 24 Consecutive Hours, Continuous Positive Airway Pressure (ICD-10-PCS; 2024-05-28)
DX: A41.52 Sepsis due to Pseudomonas (principal); J15.1 Pneumonia due to Pseudomonas; N17.0 Acute kidney failure with tubular necrosis; K72.00 Acute and subacute hepatic failure without coma; J80 Acute respiratory distress syndrome; J91.8 Pleural effusion in other conditions classified elsewhere; F10.231 Alcohol dependence with withdrawal delirium; K92.2 Gastrointestinal hemorrhage, unspecified; K76.82 Hepatic encephalopathy; I50.33 Acute on chronic diastolic (congestive) heart failure; R65.21 Severe sepsis with septic shock; E87.20 Acidosis, unspecified; E87.5 Hyperkalemia; G93.41 Metabolic encephalopathy; D63.1 Anemia in chronic kidney disease; E88.09 Other disorders of plasma-protein metabolism, not elsewhere classified; D53.9 Nutritional anemia, unspecified; F04 Amnestic disorder due to known physiological condition; F17.210 Nicotine dependence, cigarettes, uncomplicated; G62.9 Polyneuropathy, unspecified; K21.9 Gastro-esophageal reflux disease without esophagitis; K70.30 Alcoholic cirrhosis of liver without ascites; K75.4 Autoimmune hepatitis; K76.0 Fatty (change of) liver, not elsewhere classified; I11.0 Hypertensive heart disease with heart failure; J44.0 Chronic obstructive pulmonary disease with (acute) lower respiratory infection; G40.909 Epilepsy, unspecified, not intractable, without status epilepticus; D75.89 Other specified diseases of blood and blood-forming organs; E44.0 Moderate protein-calorie malnutrition; E87.1 Hypo-osmolality and hyponatremia; F41.9 Anxiety disorder, unspecified; F32.A Depression, unspecified; R74.01 Elevation of levels of liver transaminase levels; I21.A1 Myocardial infarction type 2; K70.10 Alcoholic hepatitis without ascites; E66.01 Morbid (severe) obesity due to excess calories; J98.4 Other disorders of lung; F63.81 Intermittent explosive disorder; E87.6 Hypokalemia; Z79.899 Other long term (current) drug therapy; Z79.01 Long term (current) use of anticoagulants; Z79.2 Long term (current) use of antibiotics; Z68.32 Body mass index [BMI] 32.0-32.9, adult; Z79.4 Long term (current) use of insulin; Y90.0 Blood alcohol level of less than 20 mg/100 ml